=== PATIENT | female | born 1945 | race Caucasian/White ===

== ENCOUNTER 2016-11-14 21:43 | Inpatient (IN) | payer MEDICARE, OTHER ==
[2016-11-14] MEDS ORDERED: ONDANSETRON 4 MG TAB.RAPDIS PO ONE (21:53)
--- NOTE | 2016-11-14 21:56 | ER Document Report ---
ED Medical Screen (RME) - General Stated Complaint: ABDOMINAL PAIN/VOMITING Notes: Patient complains of abdominal pain and vomiting since 2 PM this afternoon, no diarrhea. Patient does have a fever at this time. Denies cough or cold symptoms. Patient is diabetic which is diet controlled, and does have a history of diverticulitis. Denies dysuria. Denies chest pain or shortness of breath. I have greeted and performed a rapid initial assessment of this patient. A comprehensive ED assessment and evaluation of the patient, analysis of test results and completion of the medical decision making process will be conducted by additional ED providers. - Related Data Allergies/Adverse Reactions: No Known Drug Allergies Allergy (Verified 11/14/16 21:53) Past Medical History - Past Medical History Cardiac Medical History: Reports: Hx Hypercholesterolemia, Hx Hypertension Endocrine Medical History: Reports: Hx Diabetes Mellitus Type 2 Past Surgical History: Reports: Hx Tubal Ligation - Immunizations Hx Diphtheria, Pertussis, Tetanus Vaccination: No - "unknown" Physical Exam - Vital signs Vitals: Temp Pulse Resp BP Pulse Ox 100.4 F 116 H 22 H 167/67 H 92 11/14/16 21:49 11/14/16 21:49 11/14/16 21:49 11/14/16 21:49 11/14/16 21:49 Course - Vital Signs Vital signs: Temp Pulse Resp BP Pulse Ox 100.4 F 116 H 22 H 167/67 H 92 11/14/16 21:49 11/14/16 21:49 11/14/16 21:49 11/14/16 21:49 11/14/16 21:49
[2016-11-14 22:59] LABS: HEMATOCRIT 38.4 % (36.0-47.0); HEMOGLOBIN 12.8 g/dL (12.0-15.5); MEAN CORPUSCULAR HEMOGLOBIN 26.9 pg (27.0-33.4); MEAN CORPUSCULAR HGB CONC 33.4 g/dL (32.0-36.0); MEAN CORPUSCULAR VOLUME 80 fl (80-97); RED BLOOD COUNT 4.78 10^6/uL (3.72-5.28); RED CELL DISTRIBUTION WIDTH 14.5 % (11.5-14.0); WHITE BLOOD COUNT 15.1 10^3/uL (4.0-10.5)
[2016-11-14 23:18] LABS: BAND NEUTROPHILS % (MANUAL) 3 % (3-5); BASOPHILS % (MANUAL) 0 % (0-2); EOSINOPHILS % (MANUAL) 0 % (0-6); LYMPHOCYTES % (MANUAL) 5 % (13-45); TOTAL CELLS COUNTED 100
[2016-11-14 23:19] LABS: RBC MORPHOLOGY COMMENT NORMO-CYTIC/CHROMIC
[2016-11-14 23:31] LABS: ALANINE AMINOTRANSFERASE 28 U/L (9-52); ALBUMIN 4.2 g/dL (3.5-5.0); ALKALINE PHOSPHATASE 87 U/L (38-126); ANION GAP 12 (5-19); ASPARTATE AMINO TRANSFERASE 26 U/L (14-36); BILIRUBIN,TOTAL 0.9 mg/dL (0.2-1.3); BLOOD UREA NITROGEN 19 mg/dL (7-20); CALCIUM 9.6 mg/dL (8.4-10.2); CARBON DIOXIDE 25 mmol/L (22-30); CHLORIDE 104 mmol/L (98-107); CREATININE RESULT 0.71 mg/dL (0.52-1.25); GLUCOSE 214 mg/dL (75-110); LIPASE 76.6 U/L (23-300); POTASSIUM 3.7 mmol/L (3.6-5.0); SODIUM 141.2 mmol/L (137-145); TOTAL PROTEIN 8.2 g/dL (6.3-8.2)
[2016-11-15] MEDS ORDERED: ONDANSETRON HCL INJ/PF 4 MG/2 ML SDV IV ONE (00:29)
[2016-11-15] MEDS ORDERED: MORPHINE SULFATE 10 MG/ML INJ IV ONE (00:29)
[2016-11-15] MEDS ORDERED: NORMAL SALINE 1000 ML 1,000 ML IV PRN (00:29)
--- NOTE | 2016-11-15 00:36 | ER Document Report ---
ED GI/ - General Chief Complaint: Abdominal Pain Stated Complaint: ABDOMINAL PAIN/VOMITING Time seen by provider: 00:36 Information source: Patient - HPI Patient complains to provider of: Abdominal pain, Vomiting Onset: This afternoon Timing/Duration: Sudden Quality of pain: Achy, Cramping Severity at maximum: Moderate Severity in ED: Moderate Pain Level: 3 Location: LLQ, RLQ Vaginal bleeding (Compared to normal period): None Associated symptoms: Nausea, Vomiting Exacerbated by: Denies Relieved by: Denies Similar symptoms previously: Yes Recently seen / treated by doctor: No Notes: 11/15/16 00:38 Patient is a 71-year-old female presenting to the emergency room complaining of lower abdominal pain with nausea and vomiting that started around 2 PM today, she denies any diarrhea, had a normal bowel movement earlier today with no blood , she does report a fever, no sick contacts, no questionable food intake, no dysuria or hematuria, patient was recently treated for a tooth infection with a azithromycin, otherwise she has not followed up with a primary care provider in some time, she is not currently taking any medication, although a previous chart from 2012that patient has a history of hypertension and diabetes - Related Data Allergies/Adverse Reactions: No Known Drug Allergies Allergy (Verified 11/14/16 21:53) Past Medical History - General Information source: Patient - Social History Smoking Status: Never Smoker Family History: Reviewed & Not Pertinent - Past Medical History Cardiac Medical History: Reports: Hx Hypercholesterolemia, Hx Hypertension Endocrine Medical History: Reports: Hx Diabetes Mellitus Type 2 Renal/ Medical History: Denies: Hx Peritoneal Dialysis Past Surgical History: Reports: Hx Tubal Ligation - Immunizations Hx Diphtheria, Pertussis, Tetanus Vaccination: No - "unknown" Review of Systems - Review of Systems Constitutional: Fever EENT: No symptoms reported Cardiovascular: No symptoms reported Respiratory: No symptoms reported Gastrointestinal: Nausea, Vomiting Genitourinary: No symptoms reported Female Genitourinary: No symptoms reported Musculoskeletal: No symptoms reported Skin: No symptoms reported Hematologic/Lymphatic: No symptoms reported Neurological/Psychological: No symptoms reported Physical Exam - Vital signs Vitals: Temp Pulse Resp BP Pulse Ox 100.4 F 116 H 22 H 167/67 H 92 11/14/16 21:49 11/14/16 21:49 11/14/16 21:49 11/14/16 21:49 11/14/16 21:49 Interpretation: Hypertensive, Tachycardic, Tachypneic - General General appearance: Alert In distress: Mild - Appears in pain - HEENT Head: Normocephalic, Atraumatic Eyes: Normal Pupils: PERRL - Respiratory Respiratory status: No respiratory distress Chest status: Nontender Breath sounds: Normal Chest palpation: Normal - Cardiovascular Rhythm: Regular Heart sounds: Normal auscultation Murmur: No - Abdominal Inspection: Normal Distension: No distension Bowel sounds: Normal Tenderness: Tender - Across the lower abdomen Organomegaly: No organomegaly - Back Back: Normal, Nontender - Extremities General upper extremity: Normal inspection, Nontender, Normal color, Normal ROM , Normal temperature General lower extremity: Normal inspection, Nontender, Normal color, Normal ROM , Normal temperature - Neurological Neuro grossly intact: Yes Cognition: Normal Orientation: AAOx4 Lance Coma Scale Eye Opening: Spontaneous Starks Coma Scale Verbal: Oriented Starks Coma Scale Motor: Obeys Commands Lance Coma Scale Total: 15 Speech: Normal Motor strength normal: LUE, RUE, LLE, RLE Sensory: Normal - Psychological Associated symptoms: Normal affect, Normal mood - Skin Skin Temperature: Warm Skin Moisture: Dry Skin Color: Normal Course - Re-evaluation Re-evalutation: 11/15/16 03:26 Patient was seen by the surgeon who agrees to admit for further evaluation and treatment, medicine was also consulted to help with management of patient's hypertension, diabetes, chronic kidney disease and hyperlipidemia - Vital Signs Vital signs: Temp Pulse Resp BP Pulse Ox 99.8 F 99 18 115/35 L 97 11/15/16 01:19 11/15/16 01:19 11/15/16 01:19 11/15/16 01:19 11/15/16 01:19 - Laboratory Result Diagrams: 11/14/16 22:36 11/14/16 22:36 Laboratory results interpreted by me: 11/14/16 11/14/16 11/15/16 22:36 22:36 03:00 WBC 15.1 H MCH 26.9 L RDW 14.5 H Seg Neuts % (Manual) 89 H Lymphocytes % (Manual) 5 L Abs Neuts (Manual) 13.9 H Glucose 214 H Urine Ketones 20 H - Diagnostic Test Radiology reviewed: Image reviewed, Reports reviewed - Consults Dr Weber Time consulted: 01:34 Reason for consultation: 11/15/16 01:34 Perforated diverticulitis Consulted provider: will come to ER - Transfer of Care Care transferred to following provider: Dr Weber Discharge - Discharge Clinical Impression: Perforation of sigmoid colon due to diverticulitis Condition: Fair Disposition: ADMITTED INPATIENT Admitting Provider: Surgicalist Unit Admitted: Medical Floor
[2016-11-15] MEDS ORDERED: PIPERACILLIN/TAZOBACTAM 4.5 GM VIAL IV ONE (01:25)
[2016-11-15] MEDS ORDERED: HYDRALAZINE HCL INJ/PF 20 MG/1 ML SDV IV PRN (02:58)
[2016-11-15] MEDS ORDERED: DEXTROSE 40% GEL 15 GM TUBE PO PRN ×2 (02:58)
[2016-11-15] MEDS ORDERED: GLUCAGON,HUMAN RECOMB 1 MG INJ IM PRN (02:58)
[2016-11-15] MEDS ORDERED: DEXTROSE 50%-WATER 25 GM/50 ML DISP.SYRIN IV PRN ×2 (02:58)
[2016-11-15] MEDS ORDERED: INSULIN LISPRO 100 UNIT/ML 3 ML VIAL SUBCUT PRN (02:58)
[2016-11-15] MEDS ORDERED: ONDANSETRON HCL INJ/PF 4 MG/2 ML SDV IV PRN (03:13)
[2016-11-15 03:24] LABS: AMORPHOUS SEDIMENT,URINE TRACE /HPF; APPEARANCE,URINE CLEAR; BILIRUBIN,URINE NEGATIVE (NEGATIVE); GLUCOSE, URINE NEGATIVE (NEGATIVE); KETONES,URINE 20 mg/dL (NEGATIVE); LEUKOCYTE ESTERASE,URINE NEGATIVE (NEGATIVE); NITRITE,URINE NEGATIVE (NEGATIVE); PROTEIN,URINE NEGATIVE (NEGATIVE); URINE SPECIFIC GRAVITY 1.051; UROBILINOGEN,URINE NEGATIVE mg/dL (<2.0)
--- NOTE | 2016-11-15 03:36 | PDOC H&P ---
History of Present Illness History of Present Illness: KASHIF FERNANDEZ is a 71 year old white female who had the acute onset of lower abdominal pain, nausea and vomiting starting at 2 PM yesterday. She ate around noon, then she had a bowel movement around 1:30 PM, and shortly thereafter had the onset of the pain. Pain was 9/10, constant, sharp. The pain was across her lower abdomen. She went home and began having nausea and vomiting. She's had 4 bouts of nausea and vomiting, the last being at 6 PM. In addition to these symptoms she is had fevers, chills, headaches. The pain has subsided somewhat in the emergency department. She currently rates the pain at 5/10. If she moves, it exacerbates the pain. The pain does not radiate down her legs , to her chest nor to her back. There is no personal or family history of ulcerative colitis, Crohn's disease or colorectal cancer. Her mother did have diverticulitis and the patient has been informed on colonoscopy within the last 2 years that she has diverticulosis. Only abdominal surgery is a tubal ligation. Extensive review of systems reveals recent tooth infection. She finished her Z- [facility]ris on 11/13/2016. Past Medical History Cardiac Medical History: Reports: Hyperlipidema, Hypertension Endocrine Medical History: Reports: Diabetes Mellitus Type 2 Renal/ Medical History: Reports: Chronic Kidney Disease Past Surgical History Past Surgical History: Reports: Tubal Ligation Social History Information Source: Patient Lives with: Alone Smoking Status: Never Smoker Frequency of Alcohol Use: None Hx Recreational Drug Use: No Drugs: None Hx Prescription Drug Abuse: No Family History Family History: CVA, DM, Other - Diverticulitis in her mother. She denies any family or personal history of bleeding disorders, blood clots or anesthesia problems. Parental Family History Reviewed: Yes Children Family History Reviewed: Yes Sibling(s) Family History Reviewed.: Yes Medication/Allergy Home Medications: Atorvastatin Calcium [Lipitor 10 mg Tablet] 10 mg PO QHS 09/16/13 Calcium Carb & Citrate/Vit D3 [Citracal + D ER Tablet] 1 tab PO BID 09/16/13 Cinnamon Bark [Cinnamon Bark 500 mg Capsule] 1 cap PO DAILY PRN 09/16/13 Ciprofloxacin HCl [Cipro 500 mg Tablet] 500 mg PO BID #30 tablet 09/16/13 Lisinopril/Hydrochlorothiazide [Lisinopril-Hctz 10-12.5 mg Tab] 1 each PO DAILY 09/16/13 Metformin HCl [Glucophage] 500 mg PO BID 09/16/13 Metronidazole [Flagyl 500 mg Tablet] 500 mg PO Q8H #42 tablet 09/16/13 Allergies/Adverse Reactions: No Known Drug Allergies Allergy (Verified 11/14/16 21:53) Review of Systems All systems: reviewed and no additional remarkable complaints except as stated Physical Exam Vital Signs: Temp Pulse Resp BP Pulse Ox 99.8 F 99 18 115/35 L 97 11/15/16 01:19 11/15/16 01:19 11/15/16 01:19 11/15/16 01:19 11/15/16 01:19 Intake & Output 11/13/16 11/14/16 11/15/16 06:59 06:59 06:59 Weight 70 kg General appearance: PRESENT: no acute distress Head exam: PRESENT: normocephalic Eye exam: PRESENT: EOMI Mouth exam: PRESENT: tongue midline Neck exam: ABSENT: JVD, lymphadenopathy, tenderness, thyromegaly Respiratory exam: PRESENT: clear to auscultation angela Cardiovascular exam: PRESENT: RRR, systolic murmur GI/Abdominal exam: PRESENT: soft, tenderness - Moderate tenderness to palpation in right upper quadrant and across lower abdomen, but no peritoneal signs.. ABSENT: distended, guarding, rebound Extremities exam: ABSENT: pedal edema, tenderness Neurological exam: PRESENT: alert, oriented to person, oriented to place, oriented to time, oriented to situation. ABSENT: motor sensory deficit Psychiatric exam: PRESENT: appropriate affect Skin exam: ABSENT: jaundice, rash Results Laboratory Results: 11/14/16 22:36 11/14/16 22:36 11/14/16 11/14/16 22:36 22:36 WBC 15.1 H RBC 4.78 Hgb 12.8 Hct 38.4 MCV 80 MCH 26.9 L MCHC 33.4 RDW 14.5 H Plt Count 228 Seg Neutrophils % Not Reportable Lymphocytes % Not Reportable Monocytes % Not Reportable Eosinophils % Not Reportable Basophils % Not Reportable Absolute Neutrophils Not Reportable Absolute Lymphocytes Not Reportable Absolute Monocytes Not Reportable Absolute Eosinophils Not Reportable Absolute Basophils Not Reportable Sodium 141.2 Potassium 3.7 Chloride 104 Carbon Dioxide 25 Anion Gap 12 BUN 19 Creatinine 0.71 Est GFR ( Amer) > 60 Est GFR (Non-Af Amer) > 60 Glucose 214 H Calcium 9.6 Total Bilirubin 0.9 AST 26 ALT 28 Alkaline Phosphatase 87 Total Protein 8.2 Albumin 4.2 Lipase 76.6 Impressions: Abdomen/Pelvis CT 11/15/16 00:29 IMPRESSION: CT FINDINGS COMPATIBLE WITH PERFORATED SIGMOID DIVERTICULITIS WITH A SMALL AMOUNT OF FREE INTRAPERITONEAL AIR. SURGICAL CONSULTATION IS RECOMMENDED. Status: Image reviewed by me Assessment & Plan - Diagnosis (1) Hypertension Is this a current diagnosis for this admission?: YesPlan: Medicine consult (2) Hyperlipidemia Is this a current diagnosis for this admission?: YesPlan: Medicine consult (3) Diabetes mellitus type 2, noninsulin dependent Is this a current diagnosis for this admission?: YesPlan: Medicine consult (4) Heart murmur Is this a current diagnosis for this admission?: YesPlan: Medicine consult (5) Chronic kidney disease Is this a current diagnosis for this admission?: YesPlan: Medicine consult (6) Perforation of sigmoid colon due to diverticulitis Is this a current diagnosis for this admission?: YesPlan: CT scan, reviewed images as well as radiologist report: Large bubble of air near liver, but otherwise she does not have diffuse intra-abdominal air or fluid or abscess. She has sigmoid diverticulitis. Tender, but not peritoneal. Discussed her colon sealing over versus continuing to leak. Discussed nonoperative versus operative management. She prefers to attempt nonoperative, and I think that is the preferred course at this point. Believe she will declare herself within 24-48 hours. We discussed triggers for proceeding to surgery. Admit. Medicine consult for chronic kidney disease, type II diabetes mellitus, hypertension, hyperlipidemia, heart murmur. Nothing by mouth, IV antibiotics, IV pain meds, IV antiemetics, IV fluids, SCDs, incentive spirometry, ambulate.
[2016-11-15] MEDS: MORPHINE SULFATE 10 MG/ML INJ IV PRN ×2 (04:07→16:17)
[2016-11-15] MEDS: RINGERS SOLUTION,LACTATED 1,000 ML IV PRN ×2 (05:27→15:02)
[2016-11-15] MEDS ORDERED: PIPERACILLIN/TAZOBACTAM 3.375 GM VIAL IV ONE (06:10)
[2016-11-15] MEDS: PIPERACILLIN SODIUM/TAZOBACTAM 3.375 GM in NORMAL SALINE 100 ML IV SCH ×4 (06:40→23:14)
[2016-11-15 07:04] LABS: HEMATOCRIT 32.6 % (36.0-47.0); HEMOGLOBIN 10.9 g/dL (12.0-15.5); HGB HCT DIFFERENCE 0.1; MEAN CORPUSCULAR HEMOGLOBIN 27.1 pg (27.0-33.4); MEAN CORPUSCULAR HGB CONC 33.5 g/dL (32.0-36.0); MEAN CORPUSCULAR VOLUME 81 fl (80-97); RED BLOOD COUNT 4.03 10^6/uL (3.72-5.28); RED CELL DISTRIBUTION WIDTH 15.1 % (11.5-14.0)
[2016-11-15 07:23] LABS: ALANINE AMINOTRANSFERASE 20 U/L (9-52); ALBUMIN 3.2 g/dL (3.5-5.0); ALKALINE PHOSPHATASE 66 U/L (38-126); ANION GAP 8 (5-19); ASPARTATE AMINO TRANSFERASE 20 U/L (14-36); BLOOD UREA NITROGEN 21 mg/dL (7-20); CALCIUM 8.5 mg/dL (8.4-10.2); CARBON DIOXIDE 26 mmol/L (22-30); CHLORIDE 108 mmol/L (98-107); GLUCOSE 159 mg/dL (75-110); POTASSIUM 3.6 mmol/L (3.6-5.0); SODIUM 142.4 mmol/L (137-145); TOTAL PROTEIN 6.5 g/dL (6.3-8.2)
[2016-11-15] MEDS: IPRATROPIUM/ALBUTEROL 0.5-2.5 MG/3 ML AMPUL NEB SCH ×3 (09:17→23:46)
--- NOTE | 2016-11-15 10:35 | EKG REPORT ---
SEVERITY:- OTHERWISE NORMAL ECG - SINUS RHYTHM LEFT AXIS DEVIATION : Confirmed by: Gisella Schreiber 15-Nov-2016 10:34:48
--- NOTE | 2016-11-15 15:09 | PDOC PROGRESS REPORT ---
Subjective Subjective:: Looks better. Less pain. No nausea or vomiting. No flatus or BM. Physical Exam Vital Signs: Temp Pulse Resp BP Pulse Ox 98.7 F 79 16 133/46 H 98 11/15/16 11:07 11/15/16 14:00 11/15/16 11:07 11/15/16 11:07 11/15/16 11:07 Intake & Output 11/14/16 11/15/16 11/16/16 06:59 06:59 06:59 Weight 74.571 kg General appearance: PRESENT: no acute distress Head exam: PRESENT: normocephalic Eye exam: PRESENT: EOMI, other - Glasses Mouth exam: PRESENT: tongue midline Respiratory exam: PRESENT: unlabored GI/Abdominal exam: PRESENT: distended - Mild distention versus baseline., soft, tenderness - Right upper quadrant tenderness has nearly resolved. Lower abdomen still operator brandy but very much improved from admission early this morning.. ABSENT: guarding, rebound, rigid Extremities exam: ABSENT: pedal edema, tenderness Neurological exam: PRESENT: alert, oriented to situation Psychiatric exam: PRESENT: appropriate affect, normal mood Skin exam: ABSENT: jaundice Results Laboratory Results: 11/15/16 06:56 11/15/16 06:56 11/15/16 11/15/16 06:56 06:56 WBC 15.0 H RBC 4.03 Hgb 10.9 L Hct 32.6 L MCV 81 MCH 27.1 MCHC 33.5 RDW 15.1 H Plt Count 185 Sodium 142.4 Potassium 3.6 Chloride 108 H Carbon Dioxide 26 Anion Gap 8 BUN 21 H Creatinine 0.90 Est GFR ( Amer) > 60 Est GFR (Non-Af Amer) > 60 Glucose 159 H Calcium 8.5 Total Bilirubin 1.0 AST 20 ALT 20 Alkaline Phosphatase 66 Total Protein 6.5 Albumin 3.2 L Impressions: Chest X-Ray 11/15/16 00:00 IMPRESSION: NO ACUTE RADIOGRAPHIC FINDING IN THE CHEST. Abdomen/Pelvis CT 11/15/16 00:29 IMPRESSION: CT FINDINGS COMPATIBLE WITH PERFORATED SIGMOID DIVERTICULITIS WITH A SMALL AMOUNT OF FREE INTRAPERITONEAL AIR. SURGICAL CONSULTATION IS RECOMMENDED. Assessment & Plan - Diagnosis (1) Hypertension Is this a current diagnosis for this admission?: Yes (2) Hyperlipidemia Is this a current diagnosis for this admission?: Yes (3) Diabetes mellitus type 2, noninsulin dependent Is this a current diagnosis for this admission?: Yes (4) Heart murmur Is this a current diagnosis for this admission?: Yes (5) Chronic kidney disease Is this a current diagnosis for this admission?: Yes (6) Perforation of sigmoid colon due to diverticulitis Is this a current diagnosis for this admission?: YesPlan: Her white count was the same, but her pain and vital signs improved. Continue NPO, IV antibiotics, IV pain meds, IV antiemetics, IV fluids, SCDs, incentive spirometry, ambulate. Labs in a.m.
[2016-11-15] MEDS: ACETAMINOPHEN 325 MG TABLET PO PRN (23:56)
[2016-11-16] MEDS: PIPERACILLIN SODIUM/TAZOBACTAM 3.375 GM in NORMAL SALINE 100 ML IV SCH ×4 (05:26→23:56)
[2016-11-16 06:05] LABS: HEMATOCRIT 32.8 % (36.0-47.0); HEMOGLOBIN 10.9 g/dL (12.0-15.5); HGB HCT DIFFERENCE -0.1; MEAN CORPUSCULAR HEMOGLOBIN 27.3 pg (27.0-33.4); MEAN CORPUSCULAR HGB CONC 33.4 g/dL (32.0-36.0); MEAN CORPUSCULAR VOLUME 82 fl (80-97); RED CELL DISTRIBUTION WIDTH 14.9 % (11.5-14.0); WHITE BLOOD COUNT 13.2 10^3/uL (4.0-10.5)
[2016-11-16 06:29] LABS: ALANINE AMINOTRANSFERASE 23 U/L (9-52); ALBUMIN 2.8 g/dL (3.5-5.0); ALKALINE PHOSPHATASE 68 U/L (38-126); ANION GAP 9 (5-19); ASPARTATE AMINO TRANSFERASE 18 U/L (14-36); BILIRUBIN,TOTAL 1.3 mg/dL (0.2-1.3); BLOOD UREA NITROGEN 21 mg/dL (7-20); CALCIUM 8.4 mg/dL (8.4-10.2); CARBON DIOXIDE 25 mmol/L (22-30); CHLORIDE 108 mmol/L (98-107); CREATININE RESULT 0.96 mg/dL (0.52-1.25); GLUCOSE 109 mg/dL (75-110); POTASSIUM 3.6 mmol/L (3.6-5.0); SODIUM 141.9 mmol/L (137-145); TOTAL PROTEIN 6.1 g/dL (6.3-8.2)
[2016-11-16] MEDS: IPRATROPIUM/ALBUTEROL 0.5-2.5 MG/3 ML AMPUL NEB SCH ×3 (08:55→23:59)
[2016-11-16] MEDS: MORPHINE SULFATE 10 MG/ML INJ IV PRN (09:13)
[2016-11-16] MEDS: RINGERS SOLUTION,LACTATED 1,000 ML IV PRN ×3 (09:59→21:30)
--- NOTE | 2016-11-16 10:26 | PDOC PROGRESS REPORT ---
Subjective Progress Note for:: 11/16/16 Subjective:: Patient states she feels a little better; she is having diarrhea Physical Exam Vital Signs: Temp Pulse Resp BP Pulse Ox 98.8 F 90 18 142/58 H 97 11/16/16 07:52 11/16/16 07:52 11/16/16 07:52 11/16/16 07:52 11/16/16 07:52 Intake & Output 11/15/16 11/16/16 11/17/16 06:59 06:59 06:59 Intake Total 2675 Output Total 275 Balance 2400 Weight 74.571 kg 75.6 kg General appearance: PRESENT: mild distress. ABSENT: other - Patient is diaphoretic GI/Abdominal exam: PRESENT: other - We had patient laying in bed; the abdomen is slightly distended particularly towards the pelvis, however only minimally tender. There is no rigidity, no guarding. Results Laboratory Results: 11/16/16 04:53 11/16/16 04:53 11/16/16 11/16/16 04:53 04:53 WBC 13.2 H RBC 4.00 Hgb 10.9 L Hct 32.8 L MCV 82 MCH 27.3 MCHC 33.4 RDW 14.9 H Plt Count 150 Sodium 141.9 Potassium 3.6 Chloride 108 H Carbon Dioxide 25 Anion Gap 9 BUN 21 H Creatinine 0.96 Est GFR ( Amer) > 60 Est GFR (Non-Af Amer) 57 L Glucose 109 Calcium 8.4 Total Bilirubin 1.3 AST 18 ALT 23 Alkaline Phosphatase 68 Total Protein 6.1 L Albumin 2.8 L Impressions: Chest X-Ray 11/15/16 00:00 IMPRESSION: NO ACUTE RADIOGRAPHIC FINDING IN THE CHEST. Abdomen/Pelvis CT 11/15/16 00:29 IMPRESSION: CT FINDINGS COMPATIBLE WITH PERFORATED SIGMOID DIVERTICULITIS WITH A SMALL AMOUNT OF FREE INTRAPERITONEAL AIR. SURGICAL CONSULTATION IS RECOMMENDED. Assessment & Plan - Diagnosis (1) Perforation of sigmoid colon due to diverticulitis Is this a current diagnosis for this admission?: YesPlan: 1. Patient was febrile last p.m., and is diaphoretic today. Her abdominal exam clinically is no worse. However she bears close observation, keeping her nothing by mouth and on IV fluids intravenous antibiotics 2. Will recheck patient later this afternoon. - Time Time Spent with patient: 15-24 minutes
[2016-11-16] MEDS: ACETAMINOPHEN 325 MG TABLET PO PRN (15:28)
--- NOTE | 2016-11-16 17:42 | PDOC PROGRESS REPORT ---
Subjective Progress Note for:: 11/16/16 Subjective:: Patient seen on morning rounds, she is awake alert oriented. She denies any chest pain shortness breath or dyspnea. She has mild to moderate left lower quadrant pain which has improved since yesterday. She denies any nausea or vomiting. She denies any other complaints the present time. Physical Exam Vital Signs: Temp Pulse Resp BP Pulse Ox 99.5 F 99 18 163/66 H 95 11/16/16 16:00 11/16/16 16:00 11/16/16 16:00 11/16/16 16:00 11/16/16 16:00 Intake & Output 11/15/16 11/16/16 11/17/16 06:59 06:59 06:59 Intake Total 2675 0 Output Total 275 1000 Balance 2400 -1000 Weight 74.571 kg 75.6 kg General appearance: PRESENT: no acute distress, well-developed, well-nourished Head exam: PRESENT: atraumatic, normocephalic Eye exam: PRESENT: conjunctiva pink, EOMI, PERRLA. ABSENT: scleral icterus Ear exam: PRESENT: normal external ear exam Mouth exam: PRESENT: moist, tongue midline Neck exam: ABSENT: carotid bruit, JVD, lymphadenopathy, thyromegaly Respiratory exam: PRESENT: clear to auscultation angela. ABSENT: rales, rhonchi, wheezes Cardiovascular exam: PRESENT: RRR. ABSENT: diastolic murmur, rubs, systolic murmur Pulses: PRESENT: normal dorsalis pedis pul Vascular exam: PRESENT: normal capillary refill GI/Abdominal exam: PRESENT: normal bowel sounds, soft, tenderness Rectal exam: PRESENT: deferred Extremities exam: PRESENT: full ROM. ABSENT: calf tenderness, clubbing, pedal edema Neurological exam: PRESENT: alert, awake, oriented to person, oriented to place , oriented to time, oriented to situation, CN II-XII grossly intact. ABSENT: motor sensory deficit Psychiatric exam: PRESENT: appropriate affect, normal mood. ABSENT: homicidal ideation, suicidal ideation Skin exam: PRESENT: dry, intact, warm. ABSENT: cyanosis, rash Results Laboratory Results: 11/16/16 04:53 11/16/16 04:53 11/16/16 11/16/16 04:53 04:53 WBC 13.2 H RBC 4.00 Hgb 10.9 L Hct 32.8 L MCV 82 MCH 27.3 MCHC 33.4 RDW 14.9 H Plt Count 150 Sodium 141.9 Potassium 3.6 Chloride 108 H Carbon Dioxide 25 Anion Gap 9 BUN 21 H Creatinine 0.96 Est GFR ( Amer) > 60 Est GFR (Non-Af Amer) 57 L Glucose 109 Calcium 8.4 Total Bilirubin 1.3 AST 18 ALT 23 Alkaline Phosphatase 68 Total Protein 6.1 L Albumin 2.8 L Impressions: Chest X-Ray 11/15/16 00:00 IMPRESSION: NO ACUTE RADIOGRAPHIC FINDING IN THE CHEST. Abdomen/Pelvis CT 11/15/16 00:29 IMPRESSION: CT FINDINGS COMPATIBLE WITH PERFORATED SIGMOID DIVERTICULITIS WITH A SMALL AMOUNT OF FREE INTRAPERITONEAL AIR. SURGICAL CONSULTATION IS RECOMMENDED. Assessment & Plan - Diagnosis (1) Perforation of sigmoid colon due to diverticulitis Is this a current diagnosis for this admission?: YesPlan: Patient is being managed by surgical service. She is nothing by mouth and on IV antibiotics (2) Diabetes mellitus type 2, noninsulin dependent Is this a current diagnosis for this admission?: YesPlan: Patient takes no medication at home she manages this by diet alone (3) Heart murmur Is this a current diagnosis for this admission?: YesPlan: Patient has mild systolic flow murmur (4) Hyperlipidemia Qualifiers: Hyperlipidemia type: unspecified Qualified Code(s): E78.5 - Hyperlipidemia, unspecified Is this a current diagnosis for this admission?: YesPlan: She takes Fish oil supplements only (5) Diverticulitis large intestine Qualifiers: Diverticulitis complication: with perforation Is this a current diagnosis for this admission?: YesPlan: Patient will continue to be nothing by mouth and covered with IV antibiotics and pain medicine - Time Time Spent with patient: 25-34 minutes Critical Time spent with patient: 15-24 minutes Medications reviewed and adjusted accordingly: Yes
[2016-11-17] MEDS: MORPHINE SULFATE 10 MG/ML INJ IV PRN ×2 (00:04→14:47)
[2016-11-17] MEDS: PIPERACILLIN SODIUM/TAZOBACTAM 3.375 GM in NORMAL SALINE 100 ML IV SCH ×4 (05:30→23:50)
[2016-11-17] MEDS: IPRATROPIUM/ALBUTEROL 0.5-2.5 MG/3 ML AMPUL NEB SCH ×2 (08:32→16:17)
[2016-11-17] MEDS: RINGERS SOLUTION,LACTATED 1,000 ML IV PRN ×2 (09:48→20:00)
--- NOTE | 2016-11-17 10:22 | PDOC PROGRESS REPORT ---
Subjective Progress Note for:: 11/17/16 Subjective:: The patient was seen earlier today on rounds. Patient states that she has felt a little better since starting clear liquids. Patient states that she feels constantly fevered. The patient denies any nausea, vomiting, diarrhea, shortness of breath, dizziness, chest pain, heart palpitations, or chills. Blood pressures have been elevated. When prompted the patient voices no other concerns at this time. Review of systems: The rest of the review of systems is negative. Physical Exam Vital Signs: Temp Pulse Resp BP Pulse Ox 99.1 F 89 16 172/74 H 95 11/17/16 07:54 11/17/16 08:31 11/17/16 08:31 11/17/16 07:54 11/17/16 08:31 Intake & Output 11/15/16 11/16/16 11/17/16 23:59 23:59 23:59 Intake Total 1225 3450 2146 Output Total 1275 Balance 1225 2175 2146 Weight 74.571 kg 75.6 kg 75.4 kg General appearance: PRESENT: no acute distress, cooperative, well-developed, well-nourished Head exam: PRESENT: atraumatic, normocephalic Eye exam: PRESENT: conjunctiva pink, EOMI, PERRLA. ABSENT: scleral icterus Ear exam: PRESENT: normal external ear exam Mouth exam: PRESENT: moist, tongue midline Neck exam: ABSENT: carotid bruit, JVD, lymphadenopathy, thyromegaly Respiratory exam: PRESENT: clear to auscultation angela, symmetrical, unlabored. ABSENT: rales, rhonchi, tachypnea, wheezes Cardiovascular exam: PRESENT: RRR, systolic murmur. ABSENT: diastolic murmur, rubs Pulses: PRESENT: normal dorsalis pedis pul Vascular exam: PRESENT: normal capillary refill GI/Abdominal exam: PRESENT: normal bowel sounds, soft. ABSENT: distended, guarding, mass, organolmegaly, rebound, tenderness Rectal exam: PRESENT: deferred Extremities exam: PRESENT: full ROM. ABSENT: calf tenderness, clubbing, pedal edema Neurological exam: PRESENT: alert, awake, oriented to person, oriented to place , oriented to time, oriented to situation, CN II-XII grossly intact. ABSENT: motor sensory deficit Psychiatric exam: PRESENT: appropriate affect, normal mood. ABSENT: homicidal ideation, suicidal ideation Skin exam: PRESENT: dry, intact, warm. ABSENT: cyanosis, rash Results Laboratory Results: 11/16/16 04:53 11/16/16 04:53 Impressions: Chest X-Ray 11/15/16 00:00 IMPRESSION: NO ACUTE RADIOGRAPHIC FINDING IN THE CHEST. Abdomen/Pelvis CT 11/15/16 00:29 IMPRESSION: CT FINDINGS COMPATIBLE WITH PERFORATED SIGMOID DIVERTICULITIS WITH A SMALL AMOUNT OF FREE INTRAPERITONEAL AIR. SURGICAL CONSULTATION IS RECOMMENDED. Assessment & Plan - Diagnosis (1) Perforation of sigmoid colon due to diverticulitis Is this a current diagnosis for this admission?: YesPlan: Management as per surgicalist. The patient has been started on clear liquids. (2) Hypertension Qualifiers: Hypertension type: essential hypertension Qualified Code(s): I10 - Essential (primary) hypertension Is this a current diagnosis for this admission?: YesPlan: It does not appear the patient is on any blood pressure medications at home. However the patient has consistently had elevated blood pressure since admission. Will start the patient on a dose of Norvasc and continue hydralazine when necessary (3) Diabetes mellitus type 2, noninsulin dependent Is this a current diagnosis for this admission?: YesPlan: Will continue sliding scale coverage but change to before meals and at bedtime now that the patient is taking by mouth. (4) Hyperlipidemia Qualifiers: Hyperlipidemia type: unspecified Qualified Code(s): E78.5 - Hyperlipidemia, unspecified Is this a current diagnosis for this admission?: YesPlan: The patient takes facial (5) Heart murmur Is this a current diagnosis for this admission?: Yes (6) Diverticulitis large intestine Qualifiers: Diverticulitis bleeding: without bleeding Diverticulitis complication: with perforation Qualified Code(s): K57.20 - Diverticulitis of large intestine with perforation and abscess without bleeding Is this a current diagnosis for this admission?: YesPlan: Will continue antibiotic coverage - Time Time Spent with patient: 25-34 minutes Medications reviewed and adjusted accordingly: Yes Anticipated discharge: Home Within: within 48 hours
[2016-11-17] MEDS: LACTOBACILLUS ACIDOPHILUS 250 MG TAB PO SCH (10:47)
[2016-11-17] MEDS: AMLODIPINE BESYLATE 5 MG TABLET PO SCH (10:47)
--- NOTE | 2016-11-17 12:41 | PDOC PROGRESS REPORT ---
Subjective Progress Note for:: 11/17/16 Subjective:: A she feels better and have less diarrhea and no fever last Physical Exam Vital Signs: Temp Pulse Resp BP Pulse Ox 99.1 F 82 16 148/53 H 98 11/17/16 11:41 11/17/16 11:41 11/17/16 11:41 11/17/16 11:41 11/17/16 11:41 Intake & Output 11/16/16 11/17/16 11/18/16 06:59 06:59 06:59 Intake Total 2675 4146 Output Total 275 1000 Balance 2400 3146 Weight 75.6 kg 75.4 kg General appearance: PRESENT: no acute distress GI/Abdominal exam: PRESENT: other - Abdomen is much softer today no peritoneal signs Results Laboratory Results: 11/16/16 04:53 11/16/16 04:53 Impressions: Assessment & Plan - Diagnosis (1) Perforation of sigmoid colon due to diverticulitis Plan: 1. Will advance patient to clear liquids, and switch to by mouth pain medication. 2. She continues to improve clinically she may be able to be discharged home tomorrow - Time Time Spent with patient: 15-24 minutes
[2016-11-17] MEDS: HYDRALAZINE HCL INJ/PF 20 MG/1 ML SDV IV PRN (19:59)
[2016-11-18] MEDS: IPRATROPIUM/ALBUTEROL 0.5-2.5 MG/3 ML AMPUL NEB SCH ×3 (00:07→16:12)
[2016-11-18] MEDS: PIPERACILLIN SODIUM/TAZOBACTAM 3.375 GM in NORMAL SALINE 100 ML IV SCH ×3 (05:09→17:32)
[2016-11-18] MEDS: RINGERS SOLUTION,LACTATED 1,000 ML IV PRN ×2 (05:09→21:37)
[2016-11-18 07:39] LABS: HEMATOCRIT 30.6 % (36.0-47.0); HEMOGLOBIN 10.4 g/dL (12.0-15.5); HGB HCT DIFFERENCE 0.6; MEAN CORPUSCULAR HEMOGLOBIN 27.2 pg (27.0-33.4); MEAN CORPUSCULAR VOLUME 80 fl (80-97); RED BLOOD COUNT 3.81 10^6/uL (3.72-5.28); RED CELL DISTRIBUTION WIDTH 15.1 % (11.5-14.0); WHITE BLOOD COUNT 10.7 10^3/uL (4.0-10.5)
[2016-11-18 08:07] LABS: ANION GAP 10 (5-19); BLOOD UREA NITROGEN 10 mg/dL (7-20); CALCIUM 8.3 mg/dL (8.4-10.2); CARBON DIOXIDE 23 mmol/L (22-30); CHLORIDE 105 mmol/L (98-107); CREATININE RESULT 0.73 mg/dL (0.52-1.25); GLUCOSE 104 mg/dL (75-110); MAGNESIUM 1.7 mg/dL (1.6-2.3); SODIUM 137.7 mmol/L (137-145)
[2016-11-18] MEDS: POTASSIUM CHLORIDE 20 MEQ/50 ML RTU IV SCH ×3 (09:47→14:22)
[2016-11-18] MEDS ORDERED: (PENDING PHARMACY ID) (L.Acidoph & Paracasei,B.Lactis [Probiotic] 1 CAP) PO SCH (10:00)
[2016-11-18] MEDS: AMLODIPINE BESYLATE 5 MG TABLET PO SCH (10:05)
[2016-11-18] MEDS: LACTOBACILLUS ACIDOPHILUS 250 MG TAB PO SCH (10:05)
[2016-11-18] MEDS ORDERED: POTASSI CL 20 MEQ/50 ML RIDER 50 ML IV ONE (10:27)
[2016-11-18] MEDS ORDERED: POTASSIUM CHLORIDE 10 MEQ TABLET.SA PO ONE (10:28)
[2016-11-18] MEDS ORDERED: MAG CARB/AL HYDROX/ALGINIC AC 355 ML BOTTLE PO PRN (12:00)
--- NOTE | 2016-11-18 13:48 | PDOC PROGRESS REPORT ---
Subjective Progress Note for:: 11/18/16 Subjective:: Patient seen on morning rounds, she is awake alert oriented. She denies any chest pain shortness breath or dyspnea. She has mild to moderate left lower quadrant pain which has improved since yesterday. She denies any nausea or vomiting. She continues to have some diarrhea and some gas discomfort. She denies any other complaints the present time. Physical Exam Vital Signs: Temp Pulse Resp BP Pulse Ox 98.5 F 81 18 158/56 H 99 11/18/16 11:37 11/18/16 11:37 11/18/16 11:37 11/18/16 11:37 11/18/16 11:37 Intake & Output 11/17/16 11/18/16 11/19/16 06:59 06:59 06:59 Intake Total 4146 5068 Output Total 1000 2200 Balance 3146 2868 Weight 75.4 kg 77.1 kg General appearance: PRESENT: no acute distress, well-developed, well-nourished Head exam: PRESENT: atraumatic, normocephalic Eye exam: PRESENT: conjunctiva pink, EOMI, PERRLA. ABSENT: scleral icterus Ear exam: PRESENT: normal external ear exam Mouth exam: PRESENT: moist, tongue midline Neck exam: ABSENT: carotid bruit, JVD, lymphadenopathy, thyromegaly Respiratory exam: PRESENT: accessory muscle use Cardiovascular exam: PRESENT: RRR. ABSENT: diastolic murmur, rubs, systolic murmur Pulses: PRESENT: normal dorsalis pedis pul GI/Abdominal exam: PRESENT: normal bowel sounds, soft, tenderness - mild left lower quadrant. ABSENT: distended, guarding, mass, organolmegaly, rebound Rectal exam: PRESENT: deferred Extremities exam: PRESENT: full ROM. ABSENT: calf tenderness, clubbing, pedal edema Neurological exam: PRESENT: alert, awake, oriented to person, oriented to place , oriented to time, oriented to situation, CN II-XII grossly intact. ABSENT: motor sensory deficit Psychiatric exam: PRESENT: appropriate affect, normal mood. ABSENT: homicidal ideation, suicidal ideation Skin exam: PRESENT: dry, intact, warm. ABSENT: cyanosis, rash Results Laboratory Results: 11/18/16 06:36 11/18/16 06:36 11/18/16 11/18/16 06:36 06:36 WBC 10.7 H RBC 3.81 Hgb 10.4 L Hct 30.6 L MCV 80 MCH 27.2 MCHC 34.0 RDW 15.1 H Plt Count 185 Sodium 137.7 Potassium 3.0 L* Chloride 105 Carbon Dioxide 23 Anion Gap 10 BUN 10 Creatinine 0.73 Est GFR ( Amer) > 60 Est GFR (Non-Af Amer) > 60 Glucose 104 Calcium 8.3 L Magnesium 1.7 Impressions: Chest X-Ray 11/15/16 00:00 IMPRESSION: NO ACUTE RADIOGRAPHIC FINDING IN THE CHEST. Abdomen/Pelvis CT 11/15/16 00:29 IMPRESSION: CT FINDINGS COMPATIBLE WITH PERFORATED SIGMOID DIVERTICULITIS WITH A SMALL AMOUNT OF FREE INTRAPERITONEAL AIR. SURGICAL CONSULTATION IS RECOMMENDED. Assessment & Plan - Diagnosis (1) Perforation of sigmoid colon due to diverticulitis Is this a current diagnosis for this admission?: YesPlan: Patient is being managed by surgical service. She is presently on clear liquids. continue IV antibiotics Diet progression per surgialist (2) Diabetes mellitus type 2, noninsulin dependent Is this a current diagnosis for this admission?: Yes (3) Heart murmur Is this a current diagnosis for this admission?: YesPlan: Patient has mild systolic flow murmur (4) Hyperlipidemia Qualifiers: Hyperlipidemia type: unspecified Qualified Code(s): E78.5 - Hyperlipidemia, unspecified Is this a current diagnosis for this admission?: YesPlan: She takes Fish oil supplements only - Time Time Spent with patient: 25-34 minutes Critical Time spent with patient: 15-24 minutes Medications reviewed and adjusted accordingly: Yes
[2016-11-18] MEDS: HYDRALAZINE HCL INJ/PF 20 MG/1 ML SDV IV PRN (18:00)
--- NOTE | 2016-11-18 20:57 | PDOC PROGRESS REPORT ---
Subjective Subjective:: Patient reports multiple episodes of relatively intense, brief gas pain throughout the day, but the original pain she presented with is greatly improved. She is tolerating her liquids without nausea or vomiting, but has minimal appetite. Physical Exam Vital Signs: Temp Pulse Resp BP Pulse Ox 98.2 F 101 H 21 H 177/76 H 100 11/18/16 16:38 11/18/16 16:38 11/18/16 16:38 11/18/16 16:38 11/18/16 16:38 Intake & Output 11/17/16 11/18/16 11/19/16 06:59 06:59 06:59 Intake Total 4146 5068 1645 Output Total 1000 2200 1800 Balance 3146 2868 -155 Weight 75.4 kg 77.1 kg General appearance: PRESENT: no acute distress Head exam: PRESENT: normocephalic GI/Abdominal exam: PRESENT: distended, soft, tenderness - Still has some overall distention as well as tenderness in the left lower quadrant.. ABSENT: guarding, rebound Neurological exam: PRESENT: alert, oriented to situation Results Laboratory Results: 11/18/16 06:36 11/18/16 19:05 11/18/16 11/18/16 11/18/16 06:36 06:36 19:05 WBC 10.7 H RBC 3.81 Hgb 10.4 L Hct 30.6 L MCV 80 MCH 27.2 MCHC 34.0 RDW 15.1 H Plt Count 185 Sodium 137.7 Potassium 3.0 L* 3.4 L Chloride 105 Carbon Dioxide 23 Anion Gap 10 BUN 10 Creatinine 0.73 Est GFR ( Amer) > 60 Est GFR (Non-Af Amer) > 60 Glucose 104 Calcium 8.3 L Magnesium 1.7 Impressions: Chest X-Ray 11/15/16 00:00 IMPRESSION: NO ACUTE RADIOGRAPHIC FINDING IN THE CHEST. Abdomen/Pelvis CT 11/15/16 00:29 IMPRESSION: CT FINDINGS COMPATIBLE WITH PERFORATED SIGMOID DIVERTICULITIS WITH A SMALL AMOUNT OF FREE INTRAPERITONEAL AIR. SURGICAL CONSULTATION IS RECOMMENDED. Assessment & Plan - Diagnosis (1) Hypertension Qualifiers: Hypertension type: essential hypertension Qualified Code(s): I10 - Essential (primary) hypertension Is this a current diagnosis for this admission?: Yes (2) Hyperlipidemia Qualifiers: Hyperlipidemia type: unspecified Qualified Code(s): E78.5 - Hyperlipidemia, unspecified Is this a current diagnosis for this admission?: Yes (3) Diabetes mellitus type 2, noninsulin dependent Is this a current diagnosis for this admission?: Yes (4) Heart murmur Is this a current diagnosis for this admission?: Yes (5) Perforation of sigmoid colon due to diverticulitis Is this a current diagnosis for this admission?: YesPlan: Still has a fair amount of brief bouts of gas pain diffusely throughout her abdomen as well as some residual tenderness in the left lower quadrant. Do not advance diet. Continue clear liquids, IV antibiotics, IV fluids. Encouraged ambulation.
[2016-11-19] MEDS: IPRATROPIUM/ALBUTEROL 0.5-2.5 MG/3 ML AMPUL NEB SCH ×3 (00:10→16:34)
[2016-11-19] MEDS: PIPERACILLIN SODIUM/TAZOBACTAM 3.375 GM in NORMAL SALINE 100 ML IV SCH ×4 (00:27→19:18)
[2016-11-19] MEDS: ACETAMINOPHEN 325 MG TABLET PO PRN (02:27)
[2016-11-19 07:22] LABS: ABSOLUTE EOSINOPHILS # (AUTO) 0.1 10^3/uL (0.0-0.6); ABSOLUTE LYMPHOCYTES (AUTO) 0.7 10^3/uL (0.5-4.7); ABSOLUTE MONOCYTES (AUTO) 0.7 10^3/uL (0.1-1.4); ABSOLUTE NEUT (AUTO) 5.9 10^3/uL (1.7-8.2); BASOPHILS % (AUTO) 0.5 % (0-2); EOSINOPHILS % (AUTO) 1.6 % (0-6); HEMATOCRIT 31.3 % (36.0-47.0); HEMOGLOBIN 10.7 g/dL (12.0-15.5); HGB HCT DIFFERENCE 0.8; LYMPHOCYTES % (AUTO) 9.7 % (13-45); MEAN CORPUSCULAR HEMOGLOBIN 27.4 pg (27.0-33.4); MEAN CORPUSCULAR HGB CONC 34.1 g/dL (32.0-36.0); MEAN CORPUSCULAR VOLUME 81 fl (80-97); MONOCYTES % (AUTO) 9.7 % (3-13); RED BLOOD COUNT 3.88 10^6/uL (3.72-5.28); RED CELL DISTRIBUTION WIDTH 15.2 % (11.5-14.0); SEGMENTED NEUTROPHILS % (AUTO) 78.5 % (42-78); WHITE BLOOD COUNT 7.5 10^3/uL (4.0-10.5)
[2016-11-19 07:33] LABS: ANION GAP 9 (5-19); BLOOD UREA NITROGEN 10 mg/dL (7-20); CALCIUM 8.4 mg/dL (8.4-10.2); CARBON DIOXIDE 23 mmol/L (22-30); CHLORIDE 108 mmol/L (98-107); CREATININE RESULT 0.72 mg/dL (0.52-1.25); GLUCOSE 92 mg/dL (75-110); MAGNESIUM 1.8 mg/dL (1.6-2.3); POTASSIUM 3.6 mmol/L (3.6-5.0)
--- NOTE | 2016-11-19 09:18 | PDOC PROGRESS REPORT ---
Subjective Progress Note for:: 11/19/16 Subjective:: The patient was seen earlier today on rounds. Patient states that she tolerated her clear liquids this morning without issue. The patient describes himself as a completely different person in comparison to yesterday. The patient denies any nausea, vomiting, diarrhea, shortness of breath, dizziness, chest pain, heart palpitations, or chills. Blood pressures have been elevated. When prompted the patient voices no other concerns at this time. Review of systems: The rest of the review of systems is negative. Physical Exam Vital Signs: Temp Pulse Resp BP Pulse Ox 98.4 F 75 18 149/52 H 98 11/19/16 05:03 11/19/16 07:00 11/19/16 05:03 11/19/16 05:03 11/19/16 05:03 Intake & Output 11/17/16 11/18/16 11/19/16 23:59 23:59 23:59 Intake Total 3771 5178 1738 Output Total 1200 3700 300 Balance 2571 1478 1438 Weight 75.4 kg 77.1 kg 77.3 kg General appearance: PRESENT: no acute distress, cooperative, well-developed, well-nourished Head exam: PRESENT: atraumatic, normocephalic Eye exam: PRESENT: conjunctiva pink, EOMI, PERRLA. ABSENT: scleral icterus Ear exam: PRESENT: normal external ear exam Mouth exam: PRESENT: moist, tongue midline Neck exam: ABSENT: carotid bruit, JVD, lymphadenopathy, thyromegaly Respiratory exam: PRESENT: clear to auscultation angela, symmetrical, unlabored. ABSENT: rales, rhonchi, tachypnea, wheezes Cardiovascular exam: PRESENT: RRR, systolic murmur. ABSENT: diastolic murmur, rubs Pulses: PRESENT: normal dorsalis pedis pul Vascular exam: PRESENT: normal capillary refill GI/Abdominal exam: PRESENT: normal bowel sounds, soft. ABSENT: distended, guarding, mass, organolmegaly, rebound, tenderness Rectal exam: PRESENT: deferred Extremities exam: PRESENT: full ROM. ABSENT: calf tenderness, clubbing, pedal edema Neurological exam: PRESENT: alert, awake, oriented to person, oriented to place , oriented to time, oriented to situation, CN II-XII grossly intact. ABSENT: motor sensory deficit Psychiatric exam: PRESENT: appropriate affect, normal mood. ABSENT: homicidal ideation, suicidal ideation Skin exam: PRESENT: dry, intact, warm. ABSENT: cyanosis, rash Results Laboratory Results: 11/19/16 06:51 11/19/16 06:51 11/18/16 11/19/16 11/19/16 19:05 06:51 06:51 WBC 7.5 RBC 3.88 Hgb 10.7 L Hct 31.3 L MCV 81 MCH 27.4 MCHC 34.1 RDW 15.2 H Plt Count 206 Seg Neutrophils % 78.5 H Lymphocytes % 9.7 L Monocytes % 9.7 Eosinophils % 1.6 Basophils % 0.5 Absolute Neutrophils 5.9 Absolute Lymphocytes 0.7 Absolute Monocytes 0.7 Absolute Eosinophils 0.1 Absolute Basophils 0.0 Sodium 140.0 Potassium 3.4 L 3.6 Chloride 108 H Carbon Dioxide 23 Anion Gap 9 BUN 10 Creatinine 0.72 Est GFR ( Amer) > 60 Est GFR (Non-Af Amer) > 60 Glucose 92 Calcium 8.4 Phosphorus 3.0 Magnesium 1.8 Impressions: Chest X-Ray 11/15/16 00:00 IMPRESSION: NO ACUTE RADIOGRAPHIC FINDING IN THE CHEST. Abdomen/Pelvis CT 11/15/16 00:29 IMPRESSION: CT FINDINGS COMPATIBLE WITH PERFORATED SIGMOID DIVERTICULITIS WITH A SMALL AMOUNT OF FREE INTRAPERITONEAL AIR. SURGICAL CONSULTATION IS RECOMMENDED. Assessment & Plan - Diagnosis (1) Perforation of sigmoid colon due to diverticulitis Is this a current diagnosis for this admission?: YesPlan: Management as per surgicalist. The patient has been started on clear liquids. (2) Hypertension Qualifiers: Hypertension type: essential hypertension Qualified Code(s): I10 - Essential (primary) hypertension Is this a current diagnosis for this admission?: YesPlan: It does not appear the patient is on any blood pressure medications at home. Although her blood pressures have been in stable they have remained elevated. Will increase Norvasc to twice a day. continue hydralazine when necessary (3) Diabetes mellitus type 2, noninsulin dependent Is this a current diagnosis for this admission?: YesPlan: Will continue sliding scale coverage but change to before meals and at bedtime now that the patient is taking by mouth. (4) Hyperlipidemia Qualifiers: Hyperlipidemia type: unspecified Qualified Code(s): E78.5 - Hyperlipidemia, unspecified Is this a current diagnosis for this admission?: YesPlan: The patient takes fish oil (5) Heart murmur Is this a current diagnosis for this admission?: Yes (6) Diverticulitis large intestine Qualifiers: Diverticulitis bleeding: without bleeding Diverticulitis complication: with perforation Qualified Code(s): K57.20 - Diverticulitis of large intestine with perforation and abscess without bleeding Is this a current diagnosis for this admission?: YesPlan: Will continue antibiotic coverage - Time Time Spent with patient: 25-34 minutes Medications reviewed and adjusted accordingly: Yes Disposition: As per surgery
[2016-11-19] MEDS: AMLODIPINE BESYLATE 5 MG TABLET PO SCH ×2 (09:30→21:20)
--- NOTE | 2016-11-19 10:01 | PDOC PROGRESS REPORT ---
Subjective Progress Note for:: 11/19/16 Subjective:: Feels much better. Marked improvement of her abdominal pain. Tolerating clears well. Physical Exam Vital Signs: Temp Pulse Resp BP Pulse Ox 98.4 F 75 18 149/52 H 98 11/19/16 05:03 11/19/16 07:00 11/19/16 05:03 11/19/16 05:03 11/19/16 05:03 Intake & Output 11/18/16 11/19/16 11/20/16 06:59 06:59 06:59 Intake Total 5068 3473 Output Total 2200 3000 Balance 2868 473 Weight 77.1 kg 77.3 kg General appearance: PRESENT: no acute distress Respiratory exam: PRESENT: clear to auscultation angela Cardiovascular exam: PRESENT: RRR GI/Abdominal exam: PRESENT: other - Soft, nondistended, moderate lower abdominal tenderness without peritoneal signs. Extremities exam: PRESENT: other - No swelling and no tenderness. Results Laboratory Results: 11/19/16 06:51 11/19/16 06:51 11/18/16 11/19/16 11/19/16 19:05 06:51 06:51 WBC 7.5 RBC 3.88 Hgb 10.7 L Hct 31.3 L MCV 81 MCH 27.4 MCHC 34.1 RDW 15.2 H Plt Count 206 Seg Neutrophils % 78.5 H Lymphocytes % 9.7 L Monocytes % 9.7 Eosinophils % 1.6 Basophils % 0.5 Absolute Neutrophils 5.9 Absolute Lymphocytes 0.7 Absolute Monocytes 0.7 Absolute Eosinophils 0.1 Absolute Basophils 0.0 Sodium 140.0 Potassium 3.4 L 3.6 Chloride 108 H Carbon Dioxide 23 Anion Gap 9 BUN 10 Creatinine 0.72 Est GFR ( Amer) > 60 Est GFR (Non-Af Amer) > 60 Glucose 92 Calcium 8.4 Phosphorus 3.0 Magnesium 1.8 Impressions: Chest X-Ray 11/15/16 00:00 IMPRESSION: NO ACUTE RADIOGRAPHIC FINDING IN THE CHEST. Abdomen/Pelvis CT 11/15/16 00:29 IMPRESSION: CT FINDINGS COMPATIBLE WITH PERFORATED SIGMOID DIVERTICULITIS WITH A SMALL AMOUNT OF FREE INTRAPERITONEAL AIR. SURGICAL CONSULTATION IS RECOMMENDED. Assessment & Plan - Diagnosis (1) Perforation of sigmoid colon due to diverticulitis Is this a current diagnosis for this admission?: YesPlan: Responding well to antibiotic therapy. Will advance diet. Probable discharge patient home tomorrow with by mouth antibiotics.
[2016-11-19] MEDS: LACTOBACILLUS ACIDOPHILUS 250 MG TAB PO SCH (11:44)
[2016-11-19] MEDS: INSULIN LISPRO 100 UNIT/ML 3 ML VIAL SUBCUT SCH ×3 (11:52→21:22)
[2016-11-19] MEDS: HYDRALAZINE HCL INJ/PF 20 MG/1 ML SDV IV PRN (16:08)
[2016-11-20] MEDS: PIPERACILLIN SODIUM/TAZOBACTAM 3.375 GM in NORMAL SALINE 100 ML IV SCH ×5 (00:35→23:37)
[2016-11-20] MEDS: RINGERS SOLUTION,LACTATED 1,000 ML IV PRN (06:33)
--- NOTE | 2016-11-20 08:57 | PDOC PROGRESS REPORT ---
Subjective Progress Note for:: 11/20/16 Subjective:: The patient was seen earlier today on rounds. Patient states that she tolerated her regular foods this morning without issue. The patient describes her self as being near baseline. The patient denies any nausea, vomiting, diarrhea, shortness of breath, dizziness, chest pain, heart palpitations, or chills. Blood pressures have been elevated. When prompted the patient voices no other concerns at this time. Review of systems: The rest of the review of systems is negative. Physical Exam Vital Signs: Temp Pulse Resp BP Pulse Ox 99.5 F 98 17 167/68 H 99 11/19/16 22:00 11/19/16 22:00 11/19/16 22:00 11/19/16 22:00 11/19/16 22:00 Intake & Output 11/18/16 11/19/16 11/20/16 23:59 23:59 23:59 Intake Total 5178 3468 1875 Output Total 3700 1300 1000 Balance 1478 2168 875 Weight 77.1 kg 77.3 kg 77.3 kg General appearance: PRESENT: no acute distress, cooperative, well-developed, well-nourished Head exam: PRESENT: atraumatic, normocephalic Eye exam: PRESENT: conjunctiva pink, EOMI, PERRLA. ABSENT: scleral icterus Ear exam: PRESENT: normal external ear exam Mouth exam: PRESENT: moist, tongue midline Neck exam: ABSENT: carotid bruit, JVD, lymphadenopathy, thyromegaly Respiratory exam: PRESENT: clear to auscultation angela, symmetrical, unlabored. ABSENT: rales, rhonchi, tachypnea, wheezes Cardiovascular exam: PRESENT: RRR, systolic murmur. ABSENT: diastolic murmur, rubs Pulses: PRESENT: normal dorsalis pedis pul Vascular exam: PRESENT: normal capillary refill GI/Abdominal exam: PRESENT: normal bowel sounds, soft. ABSENT: distended, guarding, mass, organolmegaly, rebound, tenderness Rectal exam: PRESENT: deferred Extremities exam: PRESENT: full ROM. ABSENT: calf tenderness, clubbing, pedal edema Neurological exam: PRESENT: alert, awake, oriented to person, oriented to place , oriented to time, oriented to situation, CN II-XII grossly intact. ABSENT: motor sensory deficit Psychiatric exam: PRESENT: appropriate affect, normal mood. ABSENT: homicidal ideation, suicidal ideation Skin exam: PRESENT: dry, intact, warm. ABSENT: cyanosis, rash Results Laboratory Results: 11/19/16 06:51 11/19/16 06:51 Impressions: Chest X-Ray 11/15/16 00:00 IMPRESSION: NO ACUTE RADIOGRAPHIC FINDING IN THE CHEST. Abdomen/Pelvis CT 11/15/16 00:29 IMPRESSION: CT FINDINGS COMPATIBLE WITH PERFORATED SIGMOID DIVERTICULITIS WITH A SMALL AMOUNT OF FREE INTRAPERITONEAL AIR. SURGICAL CONSULTATION IS RECOMMENDED. Assessment & Plan - Diagnosis (1) Perforation of sigmoid colon due to diverticulitis Is this a current diagnosis for this admission?: YesPlan: Management as per surgicalist. The patient has been started on a regular diet. (2) Hypertension Qualifiers: Hypertension type: essential hypertension Qualified Code(s): I10 - Essential (primary) hypertension Is this a current diagnosis for this admission?: YesPlan: It does not appear the patient is on any blood pressure medications at home. Although her blood pressures have been in stable they have remained elevated. Will continue Norvasc. I am hesitant to start another agent given that the patient is kei to blood pressure medications. I have provided a prescription for Norvasc and left it on the chart. The patient will follow with her primary care provider for further dosing or agents. (3) Diabetes mellitus type 2, noninsulin dependent Is this a current diagnosis for this admission?: YesPlan: Patient has remained diet controlled. Will DC Accu-Cheks as she has not required coverage. (4) Hyperlipidemia Qualifiers: Hyperlipidemia type: unspecified Qualified Code(s): E78.5 - Hyperlipidemia, unspecified Is this a current diagnosis for this admission?: YesPlan: The patient takes fish oil (5) Heart murmur Is this a current diagnosis for this admission?: Yes (6) Diverticulitis large intestine Qualifiers: Diverticulitis bleeding: without bleeding Diverticulitis complication: with perforation Qualified Code(s): K57.20 - Diverticulitis of large intestine with perforation and abscess without bleeding Is this a current diagnosis for this admission?: YesPlan: Will continue antibiotic coverage - Time Time Spent with patient: 25-34 minutes Medications reviewed and adjusted accordingly: Yes Anticipated discharge: Home Within: within 24 hours Disposition: The patient is a full code. Will sign off on this patient at this time. Blood pressure prescriptions have been placed on the chart. Will check in on the patient's blood pressure remotely in the a.m. if the patient is still here. If the patient's condition should change please do not hesitate to reconsult the hospitalist. And as always, I would like to thank the surgicalist team for allowing the hospitalist to participate in the care of this nice patient.
--- NOTE | 2016-11-20 09:27 | PDOC PROGRESS REPORT ---
Subjective Subjective:: minimal pain had small bm Physical Exam Vital Signs: Temp Pulse Resp BP Pulse Ox 99.5 F 98 17 167/68 H 99 11/19/16 22:00 11/19/16 22:00 11/19/16 22:00 11/19/16 22:00 11/19/16 22:00 Intake & Output 11/19/16 11/20/16 11/21/16 06:59 06:59 06:59 Intake Total 3473 3605 Output Total 3000 2000 Balance 473 1605 Weight 77.3 kg 77.3 kg GI/Abdominal exam: PRESENT: other - minimal tenderness left lower abdomen. Results Laboratory Results: 11/19/16 06:51 11/19/16 06:51 Impressions: Chest X-Ray 11/15/16 00:00 IMPRESSION: NO ACUTE RADIOGRAPHIC FINDING IN THE CHEST. Abdomen/Pelvis CT 11/15/16 00:29 IMPRESSION: CT FINDINGS COMPATIBLE WITH PERFORATED SIGMOID DIVERTICULITIS WITH A SMALL AMOUNT OF FREE INTRAPERITONEAL AIR. SURGICAL CONSULTATION IS RECOMMENDED. Assessment & Plan - Plan Summary Plan Summary: Diverticulitis recurrent/ with microperforation. Treated conservatively. Seems to be responding . Continue IV antibiotics and monitor until tomorrow.
[2016-11-20 10:22] LABS: HEMATOCRIT 31.3 % (36.0-47.0); HEMOGLOBIN 10.7 g/dL (12.0-15.5); HGB HCT DIFFERENCE 0.8; MEAN CORPUSCULAR HEMOGLOBIN 27.3 pg (27.0-33.4); MEAN CORPUSCULAR HGB CONC 34.1 g/dL (32.0-36.0); MEAN CORPUSCULAR VOLUME 80 fl (80-97); RED BLOOD COUNT 3.91 10^6/uL (3.72-5.28); RED CELL DISTRIBUTION WIDTH 15.3 % (11.5-14.0)
[2016-11-20 10:33] LABS: ANION GAP 7 (5-19); BLOOD UREA NITROGEN 10 mg/dL (7-20); CALCIUM 8.4 mg/dL (8.4-10.2); CARBON DIOXIDE 26 mmol/L (22-30); CHLORIDE 106 mmol/L (98-107); CREATININE RESULT 0.72 mg/dL (0.52-1.25); GLUCOSE 126 mg/dL (75-110); SODIUM 139.3 mmol/L (137-145)
[2016-11-20] MEDS: LACTOBACILLUS ACIDOPHILUS 250 MG TAB PO SCH (10:41)
[2016-11-20] MEDS: AMLODIPINE BESYLATE 5 MG TABLET PO SCH ×2 (10:41→21:02)
[2016-11-20 10:50] LABS: ANISOCYTOSIS SLIGHT; BASOPHILS % (MANUAL) 0 % (0-2); EOSINOPHILS % (MANUAL) 3 % (0-6); HYPOCHROMASIA SLIGHT; LYMPHOCYTES % (MANUAL) 13 % (13-45); OVALOCYTES 1+; POIKILOCYTOSIS 1+; POLYCHROMASIA SLIGHT; TOTAL CELLS COUNTED 100
[2016-11-20 10:51] LABS: TOXIC GRANULATION 1+
[2016-11-20] MEDS: POTASSI CL 20 MEQ/50 ML RIDER 50 ML IV SCH ×2 (11:53→14:23)
[2016-11-20] MEDS: ACETAMINOPHEN 325 MG TABLET PO PRN (21:08)
[2016-11-21] MEDS: PIPERACILLIN SODIUM/TAZOBACTAM 3.375 GM in NORMAL SALINE 100 ML IV SCH ×2 (06:05→11:13)
[2016-11-21] MEDS: AMLODIPINE BESYLATE 5 MG TABLET PO SCH (09:42)
[2016-11-21] MEDS: LACTOBACILLUS ACIDOPHILUS 250 MG TAB PO SCH (11:13)
[2016-11-21 11:58] LABS: ANION GAP 7 (5-19); BLOOD UREA NITROGEN 10 mg/dL (7-20); CALCIUM 8.7 mg/dL (8.4-10.2); CARBON DIOXIDE 29 mmol/L (22-30); CHLORIDE 106 mmol/L (98-107); CREATININE RESULT 0.77 mg/dL (0.52-1.25); GLUCOSE 128 mg/dL (75-110); POTASSIUM 3.3 mmol/L (3.6-5.0); SODIUM 141.6 mmol/L (137-145)
[2016-11-21 14:52] VITALS: BP 167/68
[2016-11-21] MEDS ORDERED: POTASSIUM CHLORIDE 10 MEQ TABLET.SA PO ONE ×2 (15:00→15:08)
--- NOTE | 2016-11-21 15:00 | PDOC PROGRESS REPORT ---
Subjective Progress Note for:: 11/21/16 Subjective:: The patient continues to improve. The patient's potassium was low yesterday and had to be repleted. Still little low today will need to be replaced. The patient is cleared for discharge from a hospitalist standpoint. Physical Exam Vital Signs: Temp Pulse Resp BP Pulse Ox 98.6 F 78 16 167/68 H 99 11/21/16 14:50 11/21/16 14:50 11/21/16 14:50 11/21/16 14:50 11/21/16 14:50 Intake & Output 11/19/16 11/20/16 11/21/16 23:59 23:59 23:59 Intake Total 3468 2820 1080 Output Total 1300 1000 1800 Balance 2168 1820 -720 Weight 77.3 kg 77.3 kg 77.3 kg Results Laboratory Results: 11/20/16 10:14 11/21/16 11:16 11/21/16 11:16 Sodium 141.6 Potassium 3.3 L Chloride 106 Carbon Dioxide 29 Anion Gap 7 BUN 10 Creatinine 0.77 Est GFR ( Amer) > 60 Est GFR (Non-Af Amer) > 60 Glucose 128 H Calcium 8.7 Impressions: Chest X-Ray 11/15/16 00:00 IMPRESSION: NO ACUTE RADIOGRAPHIC FINDING IN THE CHEST. Abdomen/Pelvis CT 11/15/16 00:29 IMPRESSION: CT FINDINGS COMPATIBLE WITH PERFORATED SIGMOID DIVERTICULITIS WITH A SMALL AMOUNT OF FREE INTRAPERITONEAL AIR. SURGICAL CONSULTATION IS RECOMMENDED. Assessment & Plan - Diagnosis (1) Perforation of sigmoid colon due to diverticulitis Is this a current diagnosis for this admission?: YesPlan: Management as per surgicalist. The patient has been started on a regular diet. (2) Hypertension Qualifiers: Hypertension type: essential hypertension Qualified Code(s): I10 - Essential (primary) hypertension Is this a current diagnosis for this admission?: YesPlan: It does not appear the patient is on any blood pressure medications at home. Although her blood pressures have been in stable they have remained elevated. Will continue Norvasc. I am hesitant to start another agent given that the patient is kei to blood pressure medications. I have provided a prescription for Norvasc and left it on the chart. The patient will follow with her primary care provider for further dosing or agents. (3) Diabetes mellitus type 2, noninsulin dependent Is this a current diagnosis for this admission?: YesPlan: Patient has remained diet controlled. Will DC Accu-Cheks as she has not required coverage. (4) Hyperlipidemia Qualifiers: Hyperlipidemia type: unspecified Qualified Code(s): E78.5 - Hyperlipidemia, unspecified Is this a current diagnosis for this admission?: YesPlan: The patient takes fish oil (5) Heart murmur Is this a current diagnosis for this admission?: Yes (6) Diverticulitis large intestine Qualifiers: Diverticulitis bleeding: without bleeding Diverticulitis complication: with perforation Qualified Code(s): K57.20 - Diverticulitis of large intestine with perforation and abscess without bleeding Is this a current diagnosis for this admission?: YesPlan: Will continue antibiotic coverage (7) Hypokalemia Is this a current diagnosis for this admission?: YesPlan: This was repleted and does need to be replaced. - Time Time Spent with patient: Less than 15 minutes Medications reviewed and adjusted accordingly: Yes Disposition: The patient is a full code. Will sign off on this patient at this time. Blood pressure prescriptions have been placed on the chart. Will check in on the patient's blood pressure remotely in the a.m. if the patient is still here. If the patient's condition should change please do not hesitate to reconsult the hospitalist. And as always, I would like to thank the surgicalist team for allowing the hospitalist to participate in the care of this nice patient.
--- NOTE | 2016-11-21 16:58 | DISCHARGE SUMMARY E ---
Discharge Summary NAME: KASHIF FERNANDEZ : 1945 AGE: 71Y ADMITTED: 11/15/2016 DISCHARGED: 11/21/2016 ADMITTING DIAGNOSIS: Recurrent diverticulitis with microperforation. OUTCOME: Patient treated conservatively, resolved most of the pain and tenderness resolved completely. Successful conservative management *------*. HOSPITAL COURSE: The patient had a history of diverticulitis in the past and at this time presented with abdominal pain. CT scan revealed a small amount of free air and the patient had a very localized tenderness. For this reason, she was admitted and started on IV antibiotics. The patient responded very well to the IV antibiotic therapy. I have seen her the last 2 days every day. Minimal tenderness, today no tenderness at all. Tolerating diet. Had bowel movement. White count is normal at 6. Overall, she is doing very well, so will discharge her home. Did discuss with her about she has a second episode of microperforation more than likely after a month or 2. She will follow up with general surgery clinic and she will probably need to have a laparoscopic *------* resection on elective basis. Patient understands. DISCHARGE MEDICATIONS: Include: 1. Levaquin. 2. Flagyl for another 5 days p.o. DIET: As tolerated. DICTATING PHYSICIAN: KELLI BAILEY M.D. [id number] PHY#: [id number] ID: [id number] JOB#: [id number] ACCT: [id number] cc:Ryan GUO F.N.P. >
[2016-11-22] MEDS ORDERED: POTASSIUM CHLORIDE 10 MEQ TABLET.SA PO SCH (10:00)
== END 2016-11-21 15:40 | disposition home or self-care (01) | DRG 392 ==
LOC: ER 21:43 → EH 11-15 03:08 → UNDOADMIN 11-15 03:22 → 4S 11-15 06:00
PROVIDERS: ATTEND Surgery
DX: K57.20 Diverticulitis of large intestine with perforation and abscess without bleeding (principal); I12.9 Hypertensive chronic kidney disease with stage 1 through stage 4 chronic kidney disease, or unspecified chronic kidney disease; E11.22 Type 2 diabetes mellitus with diabetic chronic kidney disease; E87.6 Hypokalemia; N18.2 Chronic kidney disease, stage 2 (mild); E78.5 Hyperlipidemia, unspecified; R01.1 Cardiac murmur, unspecified; Z98.51 Tubal ligation status; Z82.3 Family history of stroke; Z83.3 Family history of diabetes mellitus; Z79.84 Long term (current) use of oral hypoglycemic drugs; Z79.899 Other long term (current) drug therapy
CPT/HCPCS: 36415; 71010; 74177; 80048; 80053; 81001; 82962; 83036; 83690; 83735; 84100; 84132; 85025; 85027; 93005; 93010; 94640; 94799; 96361; 96365; 96375; 99285; J0360; J1815; J2270; J2405; J2543; J3480; J3490; J7030; J7120; J7620; S0119

== ENCOUNTER → 2017-08-27 | Outpatient (CLI) | payer MEDICARE, OTHER ==
--- NOTE | 2017-08-27 12:39 | WOMENS IMAGING REPORT ---
EXAM DESCRIPTION: BILAT SCREENING MAMMO W/CAD COMPLETED DATE/TIME: 08/27/2017 7:52 am REASON FOR STUDY: SCREENING MAMMO Z12.31 ENCNTR SCREEN MAMMOGRAM FOR MALIGNANT NEOPLASM OF SUMI COMPARISON: None. TECHNIQUE: Standard craniocaudal and mediolateral oblique views of each breast recorded using digita l acquisition. LIMITATIONS: None. FINDINGS: No masses, calcifications or architectural distortion. No areas of suspicion. Read with the assistance of CAD. .[facility] - R2 Cenova Version 1.3 .[facility] - R2 Cenova Version 1.3 .[facility] - R2 Cenova Version 2.4 .[facility] [place] - R2 Cenova Version 2.4 .[facility] - R2 Primer Charging Tool Setter Version 9.2 IMPRESSION: NORMAL MAMMOGRAM. BIRADS 1. BREAST DENSITY: b. There are scattered areas of fibroglandular density. BIRAD: 1 NEGATIVE RECOMMENDATION: ROUTINE SCREENING COMMENT: The patient has been notified of the results by letter per SA requirements. Additional no tification policies are in place for contacting patient with suspicious or incomplete findings. Quality ID #[id number]: The [employer] recommends an annual screening mammogram for women aged 40 years or over. This facility utilizes a reminder system to ensure that all patients receive reminder letters, and/or direct phone calls for appointments. This includes reminders for routine scr eening mammograms, diagnostic mammograms, or other Breast Imaging Interventions when appropriate. Th is patient will be placed in the appropriate reminder system. The [employer] (ACR) has developed recommendations for screening MRI of the breast s in certain patient populations, to be used in conjunction with mammography. Breast MRI surveillanc e may be appropriate for women with more than 20% lifetime risk of developing breast cancer as deter mined by genetic testing, significant family history of the disease, or history of mantle radiation f or Hodgkins Disease. ACR Practice Guidelines 2008. TECHNICAL DOCUMENTATION: FINDING NUMBER: (1) ASSESSMENT: (1) JOB ID: [id number] [employer]- All Rights Reserved
== END ==
LOC: WI 07:23
PROVIDERS: ATTEND Physician Assistant
DX: Z12.31 Encounter for screening mammogram for malignant neoplasm of breast (principal)
CPT/HCPCS: 77067; G0202

== ENCOUNTER 2018-03-31 01:43 | Observation (INO) | payer MEDICARE, OTHER ==
[2018-03-31] MEDS ORDERED: ASPIRIN 81 MG TABLET, CHEWABLE PO ONE (01:45)
[2018-03-31 02:57] LABS: ABSOLUTE EOSINOPHILS # (AUTO) 0.2 10^3/uL (0.0-0.6); ABSOLUTE LYMPHOCYTES (AUTO) 1.1 10^3/uL (0.5-4.7); ABSOLUTE MONOCYTES (AUTO) 0.7 10^3/uL (0.1-1.4); ABSOLUTE NEUT (AUTO) 7.7 10^3/uL (1.7-8.2); BASOPHILS % (AUTO) 0.3 % (0-2); EOSINOPHILS % (AUTO) 1.6 % (0-6); HEMOGLOBIN 12.3 g/dL (12.0-15.5); LYMPHOCYTES % (AUTO) 10.9 % (13-45); MEAN CORPUSCULAR HEMOGLOBIN 28.2 pg (27.0-33.4); MEAN CORPUSCULAR HGB CONC 34.2 g/dL (32.0-36.0); MEAN CORPUSCULAR VOLUME 82 fl (80-97); MONOCYTES % (AUTO) 7.6 % (3-13); PLATELET COUNT 202 10^3/uL (150-450); RED BLOOD COUNT 4.38 10^6/uL (3.72-5.28); RED CELL DISTRIBUTION WIDTH 15.7 % (11.5-14.0); SEGMENTED NEUTROPHILS % (AUTO) 79.6 % (42-78); TOTAL CELLS COUNTED % (AUTO) 100 %; WHITE BLOOD COUNT 9.7 10^3/uL (4.0-10.5)
--- NOTE | 2018-03-31 03:03 | RADIOLOGY REPORT (SQ) ---
EXAM DESCRIPTION: XR CHEST 1 VIEW COMPLETED DATE/TME: 03/31/2018 01:45 CLINICAL HISTORY: 72 years Female, cp COMPARISON: 2.5.17. NUMBER OF VIEWS/TECHNIQUE: 1/AP FINDINGS: Adequate lung volume, small atelectasis or scar of the left lower lobe, normal cardiac silhouette, and intact bony thorax. Stable. IMPRESSION: No acute cardiopulmonary findings.
--- NOTE | 2018-03-31 03:08 | ER Document Report ---
ED General - General Chief Complaint: Chest Pain > 30 Stated Complaint: CHES PAIN Time Seen by Provider: 03/31/18 02:50 Mode of Arrival: Ambulatory Information source: Patient Notes: 72 yr old female hx of htn hyperlipidemia diabetes not on any blood thinners presents with complaints of waking up at 1am withc midsternal chest pain with sob. pt denies any fevers or chills. denies any previous stress test or heart cath, denies any previous chest pain TRAVEL OUTSIDE OF THE [place] IN LAST 30 DAYS: No - HPI Onset: Just prior to arrival Onset/Duration: Sudden Quality of pain: Pressure Severity: Mild Pain Level: 1 Associated symptoms: Other Exacerbated by: Denies Relieved by: Denies Similar symptoms previously: No Recently seen / treated by doctor: No - Related Data Allergies/Adverse Reactions: No Known Drug Allergies Allergy (Verified 11/14/16 21:53) Past Medical History - Social History Smoking Status: Never Smoker Cigarette use (# per day): No Chew tobacco use (# tins/day): No Smoking Education Provided: No Family History: CVA, DM, Other - Diverticulitis in her mother. She denies any family or personal history of bleeding disorders, blood clots or anesthesia problems. - Past Medical History Cardiac Medical History: Reports: Hx Hypercholesterolemia, Hx Hypertension Endocrine Medical History: Reports: Hx Diabetes Mellitus Type 2 Renal/ Medical History: Denies: Hx Peritoneal Dialysis Past Surgical History: Reports: Hx Tubal Ligation - Immunizations Hx Diphtheria, Pertussis, Tetanus Vaccination: No - "unknown" Review of Systems - Review of Systems Notes: REVIEW OF SYSTEMS: CONSTITUTIONAL : Denies fever, chills, or sweats. Denies recent illness. EENT: Denies eye, ear, throat, or mouth pain or symptoms. Denies nasal or sinus congestion or discharge. Denies throat, tongue, or mouth swelling or difficulty swallowing. CARDIOVASCULAR: admits to chest pain RESPIRATORY: Denies cough, cold, or chest congestion. Denies shortness of breath, difficulty breathing, or wheezing. GASTROINTESTINAL: Denies abdominal pain or distention. Denies nausea, vomiting , or diarrhea. Denies blood in vomitus, stools, or per rectum. Denies black, tarry stools. Denies constipation. GENITOURINARY: Denies difficulty urinating, painful urination, burning, frequency, blood in urine, or discharge. FEMALE GENITOURINARY: Denies vaginal bleeding, heavy or abnormal periods, irregular periods. Denies vaginal discharge or odor. MUSCULOSKELETAL: Denies back or neck pain or stiffness. Denies joint pain or swelling. SKIN: Denies rash, lesions or sores. HEMATOLOGIC : Denies easy bruising or bleeding. LYMPHATIC: Denies swollen, enlarged glands. NEUROLOGICAL: Denies confusion or altered mental status. Denies passing out or loss of consciousness. Denies dizziness or lightheadedness. Denies headache. Denies weakness or paralysis or loss of use of either side. Denies problems with gait or speech. Denies sensory loss, numbness, or tingling. Denies seizures. PSYCHIATRIC: Denies anxiety or stress. Denies depression, suicidal ideation, or homicidal ideation. ALL OTHER SYSTEMS REVIEWED AND NEGATIVE. PHYSICAL EXAMINATION: GENERAL: Well-appearing, well-nourished and in no acute distress. HEAD: Atraumatic, normocephalic. EYES: Pupils equal round and reactive to light, extraocular movements intact, conjunctiva are normal. ENT: Nares patent, oropharynx clear without exudates. Moist mucous membranes. NECK: Normal range of motion, supple without lymphadenopathy LUNGS: Breath sounds clear to auscultation bilaterally and equal. No wheezes rales or rhonchi. HEART: Regular rate and rhythm without murmurs ABDOMEN: Soft, nontender, nondistended abdomen. No guarding, no rebound. No masses appreciated. Female : deferred Musculoskeletal: Normal range of motion, no pitting or edema. No cyanosis. NEUROLOGICAL: Cranial nerves grossly intact. Normal speech, normal gait. Normal sensory, motor exams PSYCH: Normal mood, normal affect. SKIN: Warm, Dry, normal turgor, no rashes or lesions noted. Dictation was performed using [employer] voice recognition software Physical Exam - Vital signs Vitals: Pulse Ox 99 03/31/18 01:45 Course - Re-evaluation Re-evalutation: 03/31/18 03:08 Patient given full dose aspirin, cardiac workup pending - Vital Signs Vital signs: Temp Pulse Resp BP Pulse Ox 98.5 F 84 16 131/56 H 96 03/31/18 01:54 03/31/18 01:54 03/31/18 02:36 03/31/18 02:36 03/31/18 02:36 - Laboratory Result Diagrams: 03/31/18 02:34 03/31/18 02:34 Laboratory results interpreted by me: 03/31/18 03/31/18 03/31/18 02:34 02:34 02:34 RDW 15.7 H Seg Neutrophils % 79.6 H Lymphocytes % 10.9 L D-Dimer 1.12 H BUN 26 H Est GFR ( Amer) 57 L Est GFR (Non-Af Amer) 47 L Glucose 143 H Creatine Kinase 26 L Discharge - Discharge Clinical Impression: Diabetes mellitus type 2, noninsulin dependent Hyperlipidemia Qualifiers: Hyperlipidemia type: unspecified Qualified Code(s): E78.5 - Hyperlipidemia, unspecified Hypertension Qualifiers: Hypertension type: essential hypertension Qualified Code(s): I10 - Essential ( primary) hypertension Chest pain Qualifiers: Chest pain type: unspecified Qualified Code(s): R07.9 - Chest pain, unspecified Condition: Stable Disposition: ADMITTED OBSERVATION Admitting Provider: Hospitalist Unit Admitted: Telemetry Referrals: ROSELYN LARSON PA-C [Primary Care Provider] - Follow up as needed
[2018-03-31 03:25] LABS: CREATINE KINASE MB 0.27 ng/mL (<4.55)
[2018-03-31 03:26] LABS: ALANINE AMINOTRANSFERASE 22 U/L (9-52); ALBUMIN 3.9 g/dL (3.5-5.0); ALKALINE PHOSPHATASE 72 U/L (38-126); ANION GAP 12 (5-19); ASPARTATE AMINO TRANSFERASE 22 U/L (14-36); BILIRUBIN,DIRECT 0.3 mg/dL (0.0-0.4); BLOOD UREA NITROGEN 26 mg/dL (7-20); CALCIUM 9.7 mg/dL (8.4-10.2); CARBON DIOXIDE 27 mmol/L (22-30); CHLORIDE 104 mmol/L (98-107); CREATINE KINASE 26 U/L (30-135); GLUCOSE 143 mg/dL (75-110); POTASSIUM 4.2 mmol/L (3.6-5.0); SODIUM 143.3 mmol/L (137-145)
[2018-03-31 03:38] LABS: TROPONIN I < 0.012 ng/mL
--- NOTE | 2018-03-31 04:25 | RADIOLOGY REPORT (SQ) ---
EXAM DESCRIPTION: CT CHEST ANGIOGRAPHY WITHOUT THEN WITH IV CONTRAST COMPLETED DATE/TME: 03/31/2018 03:18 CLINICAL HISTORY: 72 years Female, chest pain sob Comparison: None. Technique: IV contrast. Coronal and sagittal reformat. 3d reconstruction. This exam was performed according to our departmental dose-optimization program, which includes automated exposure control, adjustment of the mA and/or kV according to patient size and/or use of iterative reconstruction technique.[facility]: Dose Right [facility]: CareDose [facility]: Dose Right [facility]: Teradose 4D [facility]: [employer] LIMITATIONS: None Findings: No pulmonary embolus. No right ventricular strain. Mild interstitial markings of the lower lungs. Mild disc desiccation, moderate coronary arterial calcification.Inferior neck, axillae, mediastinum, lungs, airway, lymphatics, heart, vasculature, upper abdomen, and musculoskeleton appear unremarkable. Impression: Mild interstitial markings of the lower lung archer. Differential diagnosis includes pulmonary edema, atypical pneumonitis, and chronic interstitial lung disease. No pulmonary embolus.
[2018-03-31] MEDS ORDERED: GLUCAGON,HUMAN RECOMB 1 MG INJ SUBCUT PRN (06:35)
[2018-03-31] MEDS ORDERED: DEXTROSE 50%-WATER 25 GM/50 ML DISP.SYRIN IV PRN ×2 (06:35)
[2018-03-31] MEDS ORDERED: DEXTROSE 40% GEL 15 GM TUBE PO PRN ×2 (06:35)
[2018-03-31] MEDS ORDERED: MORPHINE SULFATE 10 MG/ML INJ IV PRN (06:35)
[2018-03-31] MEDS ORDERED: NITROGLYCERIN 0.4 MG/TAB 25 TAB/BOTTLE SL PRN (06:35)
[2018-03-31] MEDS ORDERED: ENOXAPARIN SODIUM INJ 80 MG/0.8 ML DISP.SYRIN SUBCUT ONE (07:00)
[2018-03-31 07:08] LABS: CHOLESTEROL 159.04 mg/dL (0-200); TRIGLYCERIDES 81 mg/dL (<150)
[2018-03-31 07:19] LABS: DIRECT LDL 95 mg/dL (<100)
[2018-03-31] MEDS ORDERED: ATORVASTATIN CALCIUM 80 MG TABLET PO ONE (07:30)
--- NOTE | 2018-03-31 09:42 | EKG REPORT ---
SEVERITY:- ABNORMAL ECG - SINUS RHYTHM BORDERLINE Q PROBABLE INFERIOR INFARCT, OLD CONSIDER ANTERIOR INFARCT : Confirmed by: Gisella Schreiber 31-Mar-2018 09:41:51
--- NOTE | 2018-03-31 09:42 | EKG REPORT ---
SEVERITY:- BORDERLINE ECG - SINUS RHYTHM RIGHT AXIS DEVIATION CONSIDER ANTERIOR INFARCT : Confirmed by: Gisella Schreiber 31-Mar-2018 09:41:59
[2018-03-31] MEDS ORDERED: DOCUSATE SODIUM 100 MG CAPSULE PO SCH (10:00)
[2018-03-31] MEDS ORDERED: LISINOPRIL 5 MG TABLET PO SCH (10:00)
--- NOTE | 2018-03-31 11:10 | PDOC CONSULTATION ---
Consultation Consult Date: 03/31/18 Attending physician:: AMIE BYNUM Consult reason:: Chest pain History of Present Illness Admission Date/PCP: 03/31/18 05:16 ROSELYN LARSON PA-C Patient complains of: Chest pain History of Present Illness: KASHIF FERNANDEZ is a 72 year old female hx of htn hyperlipidemia diabetes not on any blood thinners presents with complaints of waking up at 1am withc midsternal chest pain with sob. pt denies any fevers or chills. denies any previous stress test or heart cath, denies any previous chest pain. This history reviewed by the ER physician was reviewed with the patient and confirmed. Patient does give history of gastroesophageal reflux disease. Patient also describes history of multiple nocturnal awakening, history of snoring. Patient denied any prior history of myocardial infarction, angina patient does have symptoms of shortness of breath on exertion. Patient denied any PND, orthopnea, sustained palpitations, syncope, near syncope. Past Medical History Cardiac Medical History: Reports: Hyperlipidema, Hypertension Endocrine Medical History: Reports: Diabetes Mellitus Type 2 Past Surgical History Past Surgical History: Reports: Tubal Ligation Social History Information Source: Patient Smoking Status: Never Smoker Frequency of Alcohol Use: None Hx Recreational Drug Use: No Drugs: None Hx Prescription Drug Abuse: No - Advance Directive Resuscitation Status: Full Code Surrogate healthcare decision maker:: Patient's son is the surrogate decision-maker. Family History Family History: CVA, DM, Other - Diverticulitis in her mother. She denies any family or personal history of bleeding disorders, blood clots or anesthesia problems. Parental Family History Reviewed: Yes Children Family History Reviewed: Yes Sibling(s) Family History Reviewed.: Yes Medication/Allergy Home Medications: Chlorthalidone [Chlorthalidone 25 mg Tablet] 12.5 mg PO DAILY 03/31/18 Lisinopril [Prinivil] 20 mg PO DAILY 03/31/18 Allergies/Adverse Reactions: No Known Drug Allergies Allergy (Verified 03/31/18 08:36) Review of Systems Review of Systems: Please see history of present illness and past medical history as wall. Constitutional: No fever or chills reported. Head : No recent chronic headaches, recent head injury. Eyes: No recent eye pain, diplopia, redness, discharge, acute visual changes. Ears: No recent chronic ear pain, acute hearing loss, ear discharge. Oral cavity: No recent ulcerations, bleeding, oral cavity discomfort. Neck: No recent acute neck pain reported. Hematologic: No recent easy bruising or bleeding. Lymphatic: No recent lymph node enlargement reported. Cardiovascular system review: See history of present illness. Respiratory system review: No hemoptysis or blood clots in the lungs reported. Mild Shortness of breath on exertion Gastrointestinal system review: Negative for any recent acute hematemesis, melena. Genitourinary system review: No recent acute or chronic hematuria, flank pain, UTI etc. reported. Skin system review: Negative for any recent abnormal bruising, no rash, no pruritus reported. Neurologic: No prior history of strokes, mini strokes, seizure disorder. Psychologic: No history of major psychosis or major depression reported. Musculoskeletal: Minor aches and pains reported. No acute joint swelling reported. Endocrine: No recent polyuria, polydipsia, recent heat or cold intolerance. Physical Exam Vital Signs: Temp Pulse Resp BP Pulse Ox 98.5 F 84 13 125/56 L 96 03/31/18 01:54 03/31/18 01:54 03/31/18 08:42 03/31/18 08:42 03/31/18 08:42 Exam: GENERAL: well-nourished and in no acute distress. Alert and oriented x3 HEAD: Atraumatic, normocephalic. EYES: Pupils equal round and reactive to light, extraocular movements intact, sclera anicteric, conjunctiva are normal. ENT: TMs normal, nares patent, oropharynx clear without exudates. Moist mucous membranes. No oral ulcerations or bleeding gums noted NECK: supple without lymphadenopathy. Trachea is central. No cervical or axillary lymphadenopathy noted. Carotids are 2+, JVD WNL LUNGS: Respiration seems nonlabored, no significant accessory muscle action noted. Breath sounds clear to auscultation bilaterally and equal noted. No wheezes rales or rhonchi noted. No significant dullness noted on percussion. CHEST: Palpation of the chest wall shows no significant chest wall tenderness. HEART: [place] BINGO CALLER, No PSH, 1/6 MAINOR aortic area, 1/6 shook systolic murmur mitral area, no rubs, no gallops. ABDOMEN: Soft, no significant tenderness appreciated, normoactive bowel sounds. No guarding, no rebound. No rigidity noted . No masses appreciated. EXTREMITIES: Pedal pulses are 1-2+, no calf tenderness noted. No clubbing or cyanosis. negative pedal edema noted NEUROLOGICAL: Focused neurological exam showed no significant neurologic deficit. Normal speech, no focal weakness appreciated. PSYCH: Normal mood, normal affect. Judgment and insight within normal limits. SKIN: No significant ecchymosis, skin is noted to be warm. MUSCULOSKELETAL EXAM: No significant acute joint swelling noted. Results Laboratory Results: 03/31/18 03/31/18 03/31/18 05:25 05:25 05:25 CK-MB (CK-2) < 0.22 Troponin I < 0.012 Cancelled NT-Pro-B Natriuret Pep 66 EKG Comments: Sinus rhythm, no acute ST-T wave changes are noted. Impressions: Chest X-Ray 03/31/18 01:45 IMPRESSION: No acute cardiopulmonary findings. Assessment & Plan - Diagnosis (1) Chest pain Qualifiers: Chest pain type: unspecified Qualified Code(s): R07.9 - Chest pain, unspecified Is this a current diagnosis for this admission?: Yes (2) Gastroesophageal reflux disease Qualifiers: Esophagitis presence: esophagitis presence not specified Qualified Code(s) : K21.9 - Gastro-esophageal reflux disease without esophagitis Is this a current diagnosis for this admission?: Yes (3) Diabetes mellitus type 2, noninsulin dependent Is this a current diagnosis for this admission?: Yes (4) Hyperlipidemia Qualifiers: Hyperlipidemia type: unspecified Qualified Code(s): E78.5 - Hyperlipidemia , unspecified Is this a current diagnosis for this admission?: Yes (5) Hypertension Qualifiers: Hypertension type: essential hypertension Qualified Code(s): I10 - Essential (primary) hypertension - Notes Notes: Chest pain: Patient has significant cardiac risk factors. However EKG 3 negative. Cardiac enzymes 2 negative. Patient does want to be discharged if at all possible. Have advised patient to ambulate in the hallway. If she does well she could be discharged with stress test and 2D echo is scheduled as an outpatient. Gastroesophageal reflux: Patient gives history of this on a frequent basis. Recommend double dose proton pump inhibitor until his stress test can be performed. Diabetes: This is being expertly managed by hospitalist and jewelry facer. Hyperlipidemia: Recommend high potency statin therapy. Hypertension: Blood pressure goal is 135/85 in this lady with diabetes. However because of her age, a more liberal goal of 140/90 can also be entertained. Sleep disordered: Patient does give history of sleep problem. Discussed that both sleep apnea and insomnia can be associated with increased cardiovascular event risk. This can be further evaluated as an outpatient through my office if needed. - Time Time Spent: 30 to 50 Minutes - CODE STATUS was discussed, patient remains full code. Surrogate decision-maker patient's son. Multiple medical problems were addressed. More than 50% of the time spent coordinating care, discussing management plans with involved caregivers. Management plans discussed with involved personnels. Medical decision making was of moderate to high complexity , patient's has multiple comorbidities. Medications reviewed and adjusted accordingly: Yes
[2018-03-31 11:51] VITALS: BP 128/49
--- NOTE | 2018-03-31 12:06 | PDOC DISCHARGE SUMMARY ---
General - Admit/Disc Date/PCP Admission Date/Primary Care Provider: 03/31/18 05:16 ROSELYN LARSON PA-C Discharge Date: 03/31/18 - Discharge Diagnosis (1) Chest pain Is this a current diagnosis for this admission?: Yes (2) Diabetes mellitus type 2, noninsulin dependent Is this a current diagnosis for this admission?: Yes (3) Hyperlipidemia Is this a current diagnosis for this admission?: Yes - Additional Information Resuscitation Status: Full Code Discharge Diet: Diabetic Discharge Activity: Activity As Tolerated Home Medications: Chlorthalidone [Chlorthalidone 25 mg Tablet] 12.5 mg PO DAILY 03/31/18 Lisinopril [Prinivil] 20 mg PO DAILY 03/31/18 History of Present Illness History of Present Illness: KASHIF FERNANDEZ is a 72 year old female patient with past medical history of diabetes mellitus, hyperlipidemia and hypertension presents with chief complaint of chest pain which wakes her up from sound sleep at 1 AM in the morning. Patient describes the chest pain pressure-like nonradiating localizes to her mid sternum and associated shortness of breath. No other constitutional symptoms. Hospital Course Hospital Course: Patient remained chest pain-free throughout the night. Her 3 sets of cardiac enzymes are negative no EKG changes. This morning patient evaluated by Dr. Schreiber pasteurizer helper who recommended patient can be discharged safely and she can have stress test as outpatient and he will see her in his office. Physical Exam Vital Signs: Temp Pulse Resp BP Pulse Ox 98.1 F 74 16 128/49 H 98 03/31/18 11:49 03/31/18 11:49 03/31/18 11:49 03/31/18 11:49 03/31/18 11:49 General appearance: PRESENT: no acute distress, well-developed, well-nourished Head exam: PRESENT: atraumatic, normocephalic Eye exam: PRESENT: conjunctiva pink, EOMI, PERRLA. ABSENT: scleral icterus Neck exam: ABSENT: carotid bruit, JVD, lymphadenopathy, thyromegaly Respiratory exam: PRESENT: clear to auscultation angela. ABSENT: rales, rhonchi, wheezes Cardiovascular exam: PRESENT: RRR. ABSENT: diastolic murmur, rubs, systolic murmur GI/Abdominal exam: PRESENT: normal bowel sounds, soft. ABSENT: distended, guarding, mass, organolmegaly, rebound, tenderness Neurological exam: PRESENT: alert, awake, oriented to time, oriented to situation Psychiatric exam: PRESENT: normal mood Results Laboratory Results: 03/31/18 03/31/18 03/31/18 05:25 05:25 05:25 CK-MB (CK-2) < 0.22 Troponin I < 0.012 Cancelled NT-Pro-B Natriuret Pep 66 Impressions: Chest X-Ray 03/31/18 01:45 IMPRESSION: No acute cardiopulmonary findings. Qualifiers - * PATIENT BEING DISCHARGED WITH ANY OF THE FOLLOWING DIAGNOSIS: No
[2018-03-31] MEDS ORDERED: ATORVASTATIN CALCIUM 80 MG TABLET PO SCH (22:00)
[2018-03-31] MEDS ORDERED: ENOXAPARIN SODIUM INJ 80 MG/0.8 ML DISP.SYRIN SUBCUT SCH (22:00)
--- NOTE | 2018-03-31 23:00 | EKG REPORT ---
SEVERITY:- BORDERLINE ECG - SINUS RHYTHM BORDERLINE LEFT AXIS DEVIATION CONSIDER ANTERIOR INFARCT : Confirmed by: Gisella Schreiber 31-Mar-2018 22:59:24
== END 2018-03-31 13:41 | disposition home or self-care (01) ==
LOC: ER 01:43 → EH 05:16 → 3W 09:07
PROVIDERS: ADMIT Internal Medicine; ATTEND Internal Medicine
DX: R07.89 Other chest pain (principal); E11.9 Type 2 diabetes mellitus without complications; E78.5 Hyperlipidemia, unspecified; R06.02 Shortness of breath; I10 Essential (primary) hypertension; K21.9 Gastro-esophageal reflux disease without esophagitis; G47.9 Sleep disorder, unspecified; Z79.899 Other long term (current) drug therapy; Z82.3 Family history of stroke; Z83.3 Family history of diabetes mellitus
CPT/HCPCS: 93005 ×2; 99285; 96372; 36415; 82553; 82550; 85025; 80053; 84484; 85379; 80061; 83880; 71045; 71275; 93010; G0378 ×2; A9270 ×2; J1650

== ENCOUNTER → 2019-01-18 | Outpatient (CLI) | payer MEDICARE, OTHER ==
--- NOTE | 2019-01-18 11:03 | WOMENS IMAGING REPORT ---
EXAM DESCRIPTION: BONE DENSITY HIP/SPINE COMPLETED DATE/TIME: 01/18/2019 10:21 am REASON FOR STUDY: Z78.0 Z12.31 ENCNTR SCREEN MAMMOGRAM FOR MALIGNANT NEOPLASM OF SUMI Z78.0 ASYMPTO MATIC MENOPAUSAL STATE COMPARISON: None. TECHNIQUE: Dual-Energy X-ray Absorptiometry (DEXA) of the AP Spine and Hip. LIMITATIONS: None. FINDINGS: LUMBAR SPINE: The bone mineral density (BMD) measured from L1-L4 in the AP projection correlates with a T-score of 1.0, which is normal as defined by the World Health Organization. HIP: The bone mineral density (BMD) measured in the left hip correlates with a T-score of -2.4, which is o steopenia as defined by the World Health Organization. IMPRESSION: 1. LUMBAR SPINE: NORMAL. 2. HIP: OSTEOPENIA. COMMENT: The World Health Organization defines low BMD as follows: T-score: Normal: Greater than -1.0 Osteopenia: Between -1.0 and -2.5 Osteoporosis: Less than -2.5 without fractures Established osteoporosis: Less than -2.5 with fractures In general, you may wish to consider: Diagnosis Treatment Follow-up DEXA Normal BMD Prevention 2-3 years Osteopenia Prevention/Therapy 1-2 years Osteoporosis Therapy Yearly TECHNICAL DOCUMENTATION: JOB ID: [id number] [employer]- All Rights Reserved Reading location - IP/workstation name: [email or web address]
--- NOTE | 2019-01-18 12:29 | WOMENS IMAGING REPORT ---
EXAM DESCRIPTION: 3D SCREENING MAMMO BILAT COMPLETED DATE/TIME: 01/18/2019 10:21 am REASON FOR STUDY: ROUTINE BILATERAL SCREENING;Z12.31 Z12.31 ENCNTR SCREEN MAMMOGRAM FOR MALIGNANT N EOPLASM OF SUMI Z78.0 ASYMPTOMATIC MENOPAUSAL STATE COMPARISON: 08/27/2017. TECHNIQUE: Standard craniocaudal and mediolateral oblique views of each breast recorded using digita l acquisition and breast tomosynthesis. LIMITATIONS: None. FINDINGS: No masses, calcifications or architectural distortion. No areas of suspicion. Read with the assistance of CAD. .[facility] - R2 Cenova Version 1.3 .[facility] Imaging - R2 Cenova Version 2.1 .[facility] - R2 Cenova Version 2.4 .[facility] - R2 Cenova Version 2.4 .[facility] - R2 [employer] Inspection Department Version 9.2 IMPRESSION: NORMAL MAMMOGRAM. BIRADS 1. BREAST DENSITY: b. There are scattered areas of fibroglandular density. BIRAD: 1 NEGATIVE RECOMMENDATION: ROUTINE SCREENING COMMENT: The patient has been notified of the results by letter per SA requirements. Additional no tification policies are in place for contacting patient with suspicious or incomplete findings. Quality ID #[id number]: The [employer] recommends an annual screening mammogram for women aged 40 years or over. This facility utilizes a reminder system to ensure that all patients receive reminder letters, and/or direct phone calls for appointments. This includes reminders for routine scr eening mammograms, diagnostic mammograms, or other Breast Imaging Interventions when appropriate. Th is patient will be placed in the appropriate reminder system. The [employer] (ACR) has developed recommendations for screening MRI of the breast s in certain patient populations, to be used in conjunction with mammography. Breast MRI surveillanc e may be appropriate for women with more than 20% lifetime risk of developing breast cancer as deter mined by genetic testing, significant family history of the disease, or history of mantle radiation f or Hodgkins Disease. ACR Practice Guidelines 2008. DBT Technology DBT is a type of tomographic mammography. With conventional mammography, overlapping breast tissue ma y make lesions difficult to detect, even with good compression. DBT uses an x-ray tube that rotates a round the breast, taking images at different angles. These images are then combined to create thin sl ices of the breast that the radiologist can view as a 3D reconstruction. The [employer] unit can perform full-field digital mammograms (2D imaging); or DBT (3D imaging); or both, in a combination mode that quickly performs both the mammogram and the tomosynthesis scan while the breast is still compressed. PQRS 6045F: Fluoroscopic imaging is not utilized for breast tomosynthesis. TECHNICAL DOCUMENTATION: FINDING NUMBER: (1) ASSESSMENT: (1) JOB ID: [id number] [employer]- All Rights Reserved Reading location - IP/workstation name: [email or web address]
== END ==
LOC: WI 10:22
PROVIDERS: ATTEND Physician Assistant
DX: Z12.31 Encounter for screening mammogram for malignant neoplasm of breast (principal); Z78.0 Asymptomatic menopausal state
CPT/HCPCS: 77063; 77067; 77080